=== PATIENT | male | born 1955 | race Caucasian/White ===

== ENCOUNTER 2017-06-25 15:56 | Emergency (ER) | payer MEDICAID ==
[~2017-06-25] VITALS: Ht 170.2 cm; Wt 74.8 kg
[2017-06-25 16:13] LABS: HEMOGLOBIN 13.6 g/dL (14.1-18.0); LYMPH % 30.6 % (10-50)
--- NOTE | 2017-06-25 16:34 | Emergency Room Report ---
History of Present Illness Time Seen by [id number] Presenting Problem in Triage Pt arrived:Ambulance Stretcher Presenting Problem:SEIZURE AT HOME. PT IS AWAKE UPON ARRIVAL TO ED WITHOUT INTERVENTION FSBS WNL PER EMS. NO SIGNS OF AMS. STATES HAS BEEN TAKING HIS MEDICINE ROUTINELY AND HASN'T ACTUALLY HAD A SEIZURE. Onset of symptoms date/time:/ or onset unknown for:MEDICAL HX UNKNOWN Treatment Prior to Arrival: [employer] Provided by: Sepsis Risk Assessment: Temp: 97.8 B/P: 123/72 MAP: 89 Pulse: 75 Resp: 18 Recent fever? N Clinical Suspician of Infection? N Mental Status: 1 - Regular (Normal Baseline) Sepsis Risk:Low Sepsis Risk Have you (or family members/close friends) recently traveled outside the [place]? N If Yes, where/when: Have you had exposure to infectious disease within the past month? TB? Other? Specify: Comment The patient is brought in by aunt once from [place]. He reportedly has a seizure. He denies having had a seizure and says he feels fine, his normal self. No recent illness. He has no pain. Denies hitting his head. No neck pain. He has a prior history of a seizure disorder. He denies tongue bites or incontinence. I have seen the patient twice previously in this emergency department under the same circumstances, he has a reported seizure but does not recall having had a seizure and denies having had a seizure. ALLERGIES Coded Allergies: No Known Allergies (06/25/17) Home Medications Reported Medications ASPIRIN (Aspirin) 81 MG PO DAILY Atorvastatin Calcium (Atorvastatin) 80 MG PO QHS CHOLECALCIFEROL (VITAMIN D3) (Vitamin D3) 800 IU PO DAILY FOLIC ACID (Folic Acid) 1 MG PO DAILY MAGNESIUM OXIDE (Magnesium Oxide) 400 MG PO BID Metoprolol Tartrate (Metoprolol) 25 MG PO BID Pantoprazole Sodium (Pantoprazole 40MG) 40 MG PO DAILY Levetiracetam (Keppra) 500 MG PO BID LISINOPRIL (Lisinopril) 5 MG PO DAILY Acetaminophen 650 MG PO Q4HP PRN PAIN History Medical History General CAD? No Angina: No NM: No Hypertension? Yes Hyperlipidemia? Yes CHF? No DVT? No PE? No COPD? No Asthma? No Anemia? Yes GERD? No Gastric ulcers? No GI Bleed? Yes Hernia? No Thyroid Problems? No Hypothyroidism? No CVA? No Seizures? Yes Diabetes? No Renal Insuffiency? No End Stage Renal Disease? No UTI? No Stones? No BPH? No GB Disease: No Nephritic Syndrome? No Asplenia? No Hepatitis? No Sickle Cell Disease? No Arthritis? No Migraines? No Cataracts? No Glaucoma? No MRSA? No HIV? No TB? Yes Anxiety? Yes Depression? Yes Cancer? Yes Site: UNKNOWN More? Yes Additional hx: ALCOHOL DEPENDENCY, UPPER GI HEMORRHAGE, TUBERCULOSIS, VRE, VITAMIN D DEFICIENCY Immunization Hx Ped.Immunizations UTD Yes DT/Tetanus Unknown Flu [id number] Pneumonia Refuses Surgical Hx Previous Surgery?N Family History Family Hx Diabetes No CAD No Hypertension Yes Hyperlipidemia Yes Cancer No TB Yes Social History Smoking Hx Smoker: Current Every Day Smoker Tobacco: Yes Type Cigarettes Packs/day 1 1/2 - 2 Packs Alcohol Alcohol: Yes Review of Systems All Other Systems Reviewed and Negative Constitutional denies fever Respiratory denies cough, denies shortness of breath Cardiovascular denies chest pain, denies palpitations Gastrointestinal denies abdominal pain, denies diarrhea, denies nausea, denies vomiting Musculoskeletal denies back pain, denies joint pain, denies neck pain Psychiatric/Neurological denies headache, denies numbness, denies weakness Physical Exam Vital Signs Vital Signs Date Time Temp Pulse Resp B/P Pulse O2 O2 Flow FiO2 Ox Delivery Rate 06/25 1558 97.8 75 18 123/72 98 General Appearance normal appearance, WD/WN Eye Exam - bilateral eye normal exam, bilateral eye PERRL, bilateral eye EOMI Ear, Nose, Throat hearing grossly normal, normal ENT inspection, no signs of cranial trauma Neck normal inspection, non-tender, supple, full range of motion Respiratory Status Yes: trachea midline, chest symmetrical, non tender chest. No: respiratory distress. Lung Sounds bilateral: normal breath sounds, lungs clear. Cardiovascular normal exam, regular rate/rhythm, no peripheral edema, no gallop, no JVD, no murmur, no rub, normal peripheral pulses Peripheral Pulses Pulses normal Yes Gastrointestinal normal bowel sounds, normal exam, non tender, soft, no organomegaly Back normal inspection, no CVA tenderness, no vertebral tenderness Extremities non-tender, normal range of motion, normal inspection Neurologic alert, social worker assistant II-XII nml as tested, no motor/sensory deficits Mental status normal mood/affect Skin intact, normal color, warm/dry Medical Decision Making LABS/Meds/Orders Pt receiving controlled substance in ED? No Results/Orders Laboratory Tests 06/25/17 1558: Sodium 133 L, Potassium 5.0, Chloride 97 L, Carbon Dioxide 29, BUN 14, Creatinine 1.1, Estimated Creat Clear 73, Estimated GFR (MDRD) 68, Glucose 103, Calcium 8.9, Total Bilirubin 0.5, AST 29, ALT 32, Alkaline Phosphatase 117 H, Total Protein 7.1, Albumin 3.6, Globulin 3.5 H, Albumin/Globulin Ratio 1.0 L, WBC 6.5, RBC 4.37 L, Hgb 13.6 L, Hct 41.5 L, MCV 95.0, RDW 13.5, Plt Count 227, MPV 8.2, Gran % 53.7, Gran # 3.5, Lymphocytes % 30.6, Monocytes % 8.0, Eosinophils % 7.0, Basophils % 0.6, Lymphocytes # 2.0, Monocytes # 0.5, Eosinophils # 0.5 H, Basophils # 0.0, PUBS MCHC 32.7, MCH 31.1 Current Medication Orders Sig/Valery Start time Last Medication Dose Route Stop Time Status Admin Sodium Chloride 10 ML PRN PRN 06/25 161 AC IV 06/26 1603 Orders Procedure Date/time Status DIET-NOTHING BY MOUTH 06/[address] HEAD W/O CONTRAST 06/[address] HEAD REQ 06/25 160 Complete CHEST(2 VIEWS-NOT PORTABLE) 06/25 160 Active IV SALINE LOCK 06/25 160 Active CBC WITH AUTO DIFF 06/25 160 Complete CHEM 12 PROFILE 06/25 160 Complete XRAY/CT/US XRAY/CT/US CT head Comment CT scan interpreted by [facility] radiologist. Faxed report received and reviewed: No definite acute intracranial disease. Departure Departure Disposition DC Home or Self Care(routine) Clinical Impression Primary Impression: Seizure Condition STABLE Referrals Malou FULLER,Gonzalo Maurice (Family) Patient Instructions DI for Seizure Disorder -- Adult Additional Instructions Additional instructions for SEIZURE OR LOSS OF CONSCIOUSNESS/POSSIBLE SEIZURE: NO DRIVING, BIKE RIDING, SWIMMING, TUB BATHING, LADDERS UNTIL CLEARED BY DOCTOR. RETURN IF SEIZURE RECURS. NO ALCOHOL OR STREET DRUGS. See your physician as soon as possible for follow-up. Return to the emergency department if seizure recurs. ED Critical Care Critical Care No
[2017-06-25 17:05] VITALS: BP 123/72
--- NOTE | 2017-06-26 09:34 | RADIOLOGY REPORT PS360 ---
CHEST(2 VIEWS-NOT PORTABLE) COMPARISON: PA and lateral chest 08/12/2016 HISTORY: Seizure activity TECHNIQUE: PA and lateral chest FINDINGS: The lung escobar are well expanded and appear clear of infiltrate. There are stable post inflammatory scarring left upper lobe. There is borderline cardio megaly without failure. The lateral view] fractures left side. There is deformity of the lateral right clavicle which was noted previously likely due to old unfused fracture. There are stable old compression fracture lower thoracic spine. IMPRESSION: Chronic changes, no acute pathology noted
--- NOTE | 2017-06-26 09:36 | RADIOLOGY REPORT PS360 ---
CT HEAD W/O CONTRAST COMPARISON: Noncontrast CT scan of brain 01/05/2016 HISTORY: Seizure activity TECHNIQUE: Multiaxial scans obtained from base skull to the vertex and were performed without contrast. FINDINGS: The base of skull appears normal, the mastoids are clear. The basilar cisterns are mildly prominent. The ventricular system is normal. There is no ischemic infarct or bleed and there are no extra-axial fluid collections. The sylvian fissures and cortical sulci are prominent. There are mild periventricular hypodensities consistent with chronic ischemic white matter changes. There is prominent arteriosclerotic calcification of the carotid siphons bilaterally. IMPRESSION: Findings of mild to moderate cortical atrophy and mild white matter changes, no acute intracranial pathology noted, agree the [facility] report
--- OUTSIDE RECORDS SUMMARY | 2017-07-02 07:54 | External Medical Summary Rpt | CCD ---
Author Author , BRIANNA Organization BRIANNA Address Unknown Phone [email or web address] Care Team Providers Care Sales Intern Name Role Phone JENNIE WYATT R, Unavailable Unavailable EDMUNDOJENNIE GARCIA R ABSNER KEENAN, ABSNER Unavailable Unavailable KEENAN ZENDEJAS ZANE, ZENDEJAS Unavailable Unavailable ZANE SILVIO GARCIA JEAN-PAUL, Unavailable Unavailable SILVIO GARCIA JEAN-PAUL [facility] [place], Unavailable Unavailable [facility] [place] [facility] [place], Unavailable Unavailable [facility] [place] ARNOLD, ARNOLD Unavailable Unavailable ARNOLD, ARNOLD Unavailable Unavailable ARNOLD SUSHILA, ARNOLD Unavailable Unavailable SUSHILA AYACH TOÑITO, AYACH TOÑITO Unavailable Unavailable AZIZ, AZIZ Unavailable Unavailable BEINEKE, BEINEKE Unavailable Unavailable BESSON, BESSON Unavailable Unavailable BESSON TING, BESSON Unavailable Unavailable TING PITTMAN, PITTMAN Unavailable Unavailable PITTMAN ALL, PITTMAN ALL Unavailable Unavailable BRAUDIS, BRAUDIS Unavailable Unavailable BRAUDIS, BRAUDIS Unavailable Unavailable [facility] Unavailable Unavailable SERVICE, [facility] Unavailable Unavailable SERVICE, [facility] CRISTIANO KET, CRISTIANO KET Unavailable Unavailable DIAZ JAM, DIAZ JAM Unavailable Unavailable AZRA CLEVE, AZRA Unavailable Unavailable CLEVE HARMONY ADRIANNA, HARMONY Unavailable Unavailable ADRIANNA BUCKY AUTO BODY REPAIRER, BUCKY Unavailable Unavailable AUTO BODY REPAIRER [facility], Unavailable Unavailable [facility] Unavailable Unavailable LA, [facility] Unavailable Unavailable [facility], [facility] SHANE BILL, Unavailable Unavailable SHANE BILL DISANTIS ZANE, Unavailable Unavailable DISANTIS ZANE DARION, DARION Unavailable Unavailable ESCOTT, ESCOTT Unavailable Unavailable [facility] Unavailable Unavailable [facility]ST[facility], [facility] Unavailable Unavailable DI[facility]NOST[facility], [facility] WILTON CHILO, Unavailable Unavailable WILTON CHILO [facility] Unavailable Unavailable TRANSPORTATION SER, [facility] HUDSON, HUDSON Unavailable Unavailable HUDSON NAN, HUDSON Unavailable Unavailable NAN ESTEVAN PAD, ESTEVAN Unavailable Unavailable PAD AUSTIN, AUSTIN Unavailable Unavailable AUSTIN AMOL, AUSTIN Unavailable Unavailable AMOL JIN SUSHILA, JIN SUSHILA Unavailable Unavailable VIRI, JR, VIRI, Unavailable Unavailable JR KELLY TING, Unavailable Unavailable KELLY TING CAIN, CAIN Unavailable Unavailable [facility], [facility] Unavailable Unavailable [facility] Unavailable Unavailable INC, [facility] Unavailable [facility]available HOSPITAL P, [facility] HOSPITAL P HASSOUN BHAVIK, HASSOUN Unavailable Unavailable BHAVIK PALOMARES MAR, PALOMARES Unavailable Unavailable MAR [facility], Unavailable Unavailable [facility] MIRZA TING, MIRZA TING Unavailable Unavailable BATOOL, BATOOL Unavailable Unavailable [facility] Unavailable Unavailable CENTER, [facility] ISTANBOLI MOH, Unavailable Unavailable ISTANBOLI MOH KAKAJI, KAKAJI Unavailable Unavailable KUMAR MAR, KUMAR Unavailable Unavailable MAR [facility] Unavailable Unavailable IMAGING ASS, [facility] CATHERINE BERTA, Unavailable Unavailable CATHERINE BERTA KEENAN BEBA, KEENAN BEBA Unavailable Unavailable [facility] Unavailable Unavailable PRACTITIONER GR, [facility] NURSE PRACTITIONER GR GÓMEZ SIMPSON, Unavailable Unavailable KOSTELIC CALVINDionicio VASQUEZS-ZENDEJAS, Unavailable Unavailable KUNS-ZENDEJAS MIKHAIL, MIKHAIL Unavailable Unavailable MIKHAIL CH[facility], MIHKAIL [facility] Unavailable [facility] Unavailable Unavailable [facility] Unavailable Unavailable [facility] Unavailable Unavailable [facility], [facility] ROLA NERIS, ROLA JAM Unavailable Unavailable ECHOLS, ECHOLS Unavailable Unavailable [facility] Unavailable Unavailable [facility], [facility] Unavailable Unavailable [facility], [facility] Unavailable Unavailable H D, [facility] Un[facility] PRATEEK, PRATEEK Unavailable Unavailable PR[facility] CON, PR[facility] CON Unavailable Unavailable MARCHINO TING, Unavailable Unavailable MARCHINO TING MASKEY JUDIE, MASKEY Unavailable Unavailable JUDIE NICKELS ZANE, NICKELS Unavailable Unavailable ZANE OSTERHAGE JADE, Unavailable Unavailable OSTERHAGE JADE BLANCA BHAVIK, BLANCA BHAVIK Unavailable Unavailable [facility], Un[facility]available [facility], [facility] KIRBY RIGGS, Unavailable Unavailable [facility] Unavailable Unavailable LALO, KIRBY RIGGS LALO PETTEY JAM, PETTEY Unavailable Unavailable JAM RASLAU FLA, RASLAU Unavailable Unavailable FLA RENUSCH, RENUSCH Unavailable Unavailable RENUSCH BHAVIK, RENUSCH Unavailable Unavailable BHAVIK RICE JAM, RICE JAM Unavailable Unavailable MARTINEZ JEREMY, Unavailable Unavailable MARTINEZ JEREMY PORTER, PORTER Unavailable Unavailable PORTER MANJU, PORTER MANJU Unavailable Unavailable SCALF, PRAVIN E, Unavailable Unavailable SCALF, PRAVIN E SHASHY PEDRO, SHASHY Unavailable Unavailable PEDRO FERNANDEZ MARGARITA, FERNANDEZ MARGARITA Unavailable Unavailable FERNANDEZ ELISA, FERNANDEZ ELISA Unavailable Unavailable FERNANDEZ MAGGI, FERNANDEZ MAGGI Unavailable Unavailable SOTINGEANU JEREMY, Unavailable Unavailable SOTINGEANU JEREMY [facility], [facility] Unavailable Unavailable [facility]GENCY PHYSI, [facility] Unavailable Unavailable PHYSICIAN SERVI, [facility] PHYSICIAN SERVI [facility], [facility]available Unavailable [facility], Unavailable Unavailable [facility] BREWER CHR, BREWER CHR Unavailable Unavailable STEARLEY SET, Unavailable Unavailable STEARLEY SET JUAN JOSE ANNEL, JUAN JOSE Unavailable Unavailable ANNEL BONNER SCO, BONNER Unavailable Unavailable SCO STRUP TING, STRUP TING Unavailable Unavailable TALARI PRE, TALARI Unavailable Unavailable PRE PEG COLIN, PEG Unavailable Unavailable COLIN RIZO DONALD, RIZO DONALD Unavailable Unavailable [facility] Unavailable Unavailable [facility], [facility] Unavailable [facility]available ASSIST, [facility], [facility]available Unavailable [facility] Unavailable [facility]available [facility] KASEY GENO, KSAEY Unavailable Unavailable GENO [id number] # Unavailable Unavailable [id number], [id number] # [id number] [facility] ([id number]), Unavailable Unavailable [facility] ([id number]) WALKER FOR, WALKER Unavailable Unavailable [facility] Unavailable Unavailable DEPT [facility], [facility] Unavailable Unavailable DEPT [facility] EDYTA IV A, Unavailable Unavailable EDYTA IV A DANIA AMOL, DANIA Unavailable Unavailable AMOL WILLEM JOVAN, WILLEM Unavailable Unavailable JOVAN WYCOFF RENE, WYCOFF Unavailable Unavailable RENE CLIFF MAR, Unavailable Unavailable ALVIN BLANTON, Unavailable Unavailable ALVIN HOLT Purpose Continuity of Care Document - 05-17-2008 through 2016 Problems Code Diagnosis DOS Provider Status [id number] ENCOUNTER 04-22-2017 [facility] DRUG LEVEL MONITORING [id number] EPILEPSY 02-16-2017 [facility] UNS NOT PHYSICIANS, INTRACT W/O PLLC STATUS EPILEPTICUS I10 ESSENTIAL 02-16-2017 [facility] HYPERTENSIO INC N R569 UNSPECIFIED 02-16-2017 [facility] Z720 TOBACCO USE 02-16-2017 [facility] R69 ILLNESS 01-29-2017 [facility] UNSPECIFIED TRANSPORTAT ION SER 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 UNSPECIFIED M150 PRIMARY 01-08-2017 A[facility]WA[facility] GENERALIZED OSTEOARTHRI TIS R5381 OTHER 01-08-2017 KOURTNEY MALAISE R748 ABNORMAL 01-01-2017 [facility] NURSE LEVELS OF PRACTITIONE OTHER SERUM R GR ENZYMES G68664 PERSONAL 01-01-2017 [facility] NURSE HISTORY OF PRACTITIONE OTHER R GR SPECIFIED CONDITIONS D649 ANEMIA 12-24-2016 [facility] UNSPECIFIED PHYSICIANS [place] E559 VITAMIN D 12-24-2016 [facility] DEFICIENCY [place] UNSPECIFIED HOLDINGS E785 HYPERLIPIDE 12-24-2016 [facility]ER PHYS[facility]IANS UNSPECIFIED LA R410 DISORIENTAT 12-11-2016 [facility] UNSPECIFIED SERVICE I2510 [facility] [place] 10-21-2016 [facility] CORONARY SERV ARTERY W/O FOUNDATION ANGINA PECTORIS I255 ISCHEMIC 10-21-2016 [facility] CARDIOMYOPA SERV THY FOUNDATION I4581 LONG QT 10-21-2016 [facility] SYNDROME SERV [facility] R9431 ABNORMAL 10-21-2016 [facility] ELECTROCARD SERV IOGRAM FOUNDATION R079 CHEST PAIN 10-07-2016 [facility] UNSPECIFIED MOBILE DIAGNOSTIC SE R7611 NONSPECIFIC 10-07-2016 EXPRESS RXN MOBILE TUBERCULIN DIAGNOSTIC SKIN TEST SE W/O ACT TB O64731 OTHER LONG 10-01-2016 [facility] TERM PHYSICIANS CURRENT [place] DRUG THERAPY G9340 ENCEPHALOPA 09-27-2016 [facility] THY SERV UNSPECIFIED FOUNDATION I5020 UNSPECIFIED 09-27-2016 [facility] SYSTOLIC SERV CONGESTIVE FOUNDATION HEART FAILURE Z8719 PERSONAL 09-27-2016 [facility] HIST[facility] OTHER [facility]ATION DISEASES DIGESTIVE SYSTEM R9082 WHITE 09-25-2016 [facility] MATTER SERV DISEASE FOUNDATION UNSPECIFIED [id number] LAC W/O FB 09-25-2016 [facility] LT EYELID & SERV PERIOCULAR FOUNDATION AREA INIT ENC Z8673 PERSONAL HX 09-25-2016 [facility] TIA & SERV CEREB FOUNDATION INFARCT NO RESID DEFICIT I5022 CHRONIC 09-24-2016 [facility] CON[facility]IVE HOSPITALS HEART FAILURE I510 CARDIAC 09-24-2016 [facility] SEPTAL SERV DEFECT FOUNDATION ACQUIRED F84678 PAIN IN 09-24-2016 [place] U[facility]PECIFIED MEDICAL HIP IMAGING ASS R4020 UNSPECIFIED 09-24-2016 [facility] COMA AMBULANCE SERVICE [id number] COMA SCALE 09-24-2016 [facility] TO SOUND AT HOSPITALS HOSPITAL ADMIS [id number] COMA SCALE 09-24-2016 [facility] CONFUSED HOSPITALS CONVERS AT ADM [id number] COMA SCALE 09-24-2016 [facility] RSPN LOCAL HOSPITALS PAIN AT HOSP ADM R4182 ALTERED 09-24-2016 [facility] MENTAL SERV STATUS [facility] UNSPECIFIED R55 SYNCOPE AND 09-24-2016 [facility] COLLAPSE SERV [facility] [id number] LACERATION 09-24-2016 [facility] W/O FB PHYSICIANS, OTHER PART PLLC HEAD INITIAL ENC S140B4V CONCUSSION 09-24-2016 W/LOC UNS HEALTHCARE DURATION HOSPITALS INITIAL ENCOUNTER L774LRL OTHER 09-24-2016 [facility] SPECIFIED AMBULANCE INJURIES SERVICE HEAD INITIAL ENCOUNTER D7699ZP UNSPECIFIED 09-24-2016 [facility] INJURY OF PHYSICIANS, HEAD PLLC INITIAL ENCOUNTER Q3876US UNSPECIFIED 09-24-2016 [facility] INJURY OF SERV FACE [facility] INITIAL ENCOUNTER Q1739NP MX FX RIBS 09-24-2016 [facility] INIT ENC HOSPITALS CLOS FRACTURE Z1315MS UNSPECIFIED 09-24-2016 [facility] INJURY OF MEDICAL PELVIS IMAGING ASS INITIAL ENCOUNTER T70LMIL UNSPECIFIED 09-24-2016 [facility] FALL SERV INITIAL FOUNDATION ENCOUNTER Z42OPNL OTHER SPEC 09-24-2016 [facility] EVENTS SERV UNDETERMINE [facility] D INTENT INIT ENC Z043 ENCOUNTER 09-24-2016 [facility] EXAM & SERV OBSERVATION FOUNDATION FOLLOW OTH ACCIDENT Z743 NEED FOR 09-24-2016 [facility] CONTINUOUS [place] SUPERVISION E871 HYPO-OSMOLA 08-12-2016 [facility] HYPONATREMI INTERNAL A MED R05 COUGH 08-12-2016 [facility] R260 ATAXIC GAIT 08-12-2016 [facility] INTER[facility] MED [id number] ADVERSE 08-12-2016 [facility] [facility] HYDANTOIN INTERNAL DERIVATIVES MED INITIAL ENC Z9181 HISTORY OF 08-12-2016 [facility] [place] [facility] INTER[facility] MED U184D7D POISON 08-11-2016 [facility] HYDANTOIN PHYSICIANS, DERIVATIVES PLLC UNDETERM INIT ENC B351 TINEA 07-31-2016 [facility] UNGUIUM C14830 UNS 07-31-2016 [facility] ATHEROSCLER [place] ART EXTREM BILATERAL LEGS L851 ACQ 07-31-2016 [facility] KERATOSIS KERATODERMA PALMARIS ET PLANTARIS N25806 PAIN IN 07-31-2016 [facility] RIGHT TOES D86110 PAIN IN 07-31-2016 [facility] LEFT TOES Z23 ENCOUNTER 07-29-2016 [facility] IMMUNIZATIO [facility] DEPT N ADRIANNA M14319 PAIN IN 06-30-2016 [facility] RIGHT ARM AMBULANCE SERVICE R0789 OTHER CHEST 06-30-2016 [facility] PAIN AMBULANCE SERVICE T65239S ABRASION 06-30-2016 [facility] RIGHT KNEE PHYSICIANS, INITIAL PLLC ENCOUNTER R42 DIZZINESS 06-20-2016 [place] AND MEDICAL GIDDINESS IMAGING ASS T0530WS CONTUSION 06-20-2016 [facility] RT EYELID & PHYSICIANS, PERIOCULAR PLLC AREA INIT ENC T63100J LAC W/O FB 06-20-2016 [facility] EYELID & MEDICAL PERIOCULAR IMAGING ASS AREA INIT ENC R401 STUPOR 05-28-2016 [facility] AMBULANCE SERVICE R531 WEAKNESS 05-28-2016 [facility] AMBULANCE SERVICE A159 RESPIRATORY 04-08-2016 [facility] S UNSPECIFIED K029 DENTAL 04-08-2016 ST [facility] UNSPECIFIED MED CTR K133 HAIRY 04-08-2016 [facility] MED CTR Z7982 SKILLED NURSING 04-08-2016 ST CURRENT USE [facility] Z7901 FLASK CLEANER 04-02-2016 [facility] CURRENT USE PHYSICIANS OF [place] ANTICOAGULA NTS Y58118 GANGLION 02-12-2016 [facility] RIGHT WRIST PHYSICIANS GROUP U14198 PAIN IN 01-28-2016 [place] RIGHT WRIST MEDICAL IMAGING ASS A47503 PAIN IN 01-28-2016 [place] LEFT WRIST MEDICAL IMAGING ASS L7204DX UNSPECIFIED 01-28-2016 [place] INJURY RT MEDICAL WRIST HAND IMAGING ASS FINGERS INITIAL R5841HH UNSPECIFIED 01-28-2016 [place] INJURY LT MEDICAL WRIST HAND IMAGING ASS FINGERS INITIAL R400 SOMNOLENCE 01-05-2016 [facility], PLLC R509 FEVER 01-05-2016 [facility] UNSPECIFIED AMBULANCE SERVICE R918 OTHER 01-05-2016 [place] NONSPECIFIC MEDICAL ABNORMAL IMAGING ASS FINDING OF LUNG FIELD M542 CERVICALGIA 07-31-2015 [place] [facility] R0902 HYPOXEMIA 07-31-2015 [facility] SERVICE R600 LOCALIZED 07-31-2015 [facility] MEDICAL IMAGING ASS R1121RR CONTUSION 07-31-2015 [facility] OF SCALP PHYSICIANS, INITIAL PLLC ENCOUNTER U969BAK UNSPECIFIED 07-31-2015 [facility] INJURY OF MEDICAL NECK IMAGING ASS INITIAL ENCOUNTER D3866XA FALL ON 07-31-2015 [place] SAME LEVEL [facility] UNSPECIFIED HOSPITAL P INITIAL ENCOUNTER J19802 BATHROOM 07-31-2015 [place] [facility] P OCCUR EXT CAUSE A157 PRIMARY 07-18-2015 [facility] RESPIRATORY PHYSICIANS ASSIST TUBERCULOSI S K0501 ACUTE 07-18-2015 [facility] GINGIVITIS PHYSICIANS NON-PLAQUE ASSIST INDUCED K054 PERIODONTOS 07-18-2015 [facility] IS PHYSICIANS ASSIST M6281 MUSCLE 07-18-2015 [facility] WEAKNESS PHYSICIANS GENERALIZED ASSIST N179 ACUTE 07-18-2015 [facility] KIDNEY PHYSICIANS FAILURE ASSIST UNSPECIFIED A150 TUBERCULOSI 07-11-2015 [facility] S OF LUNG SERV FOUNDATION R930 ABNORMAL 07-11-2015 [facility] FINDINGS ON SERV DX IMAGING FOUNDATION SKULL & HEAD NEC V5882 ENCOUNTER 06-02-2015 [facility] FITTING&ADJ SERV FOUNDATION NON-VASCULA R CATHETER NEC 09515 OTHER 06-01-2015 [facility] SPECIFIED SERV DISORDER OF FOUNDATION INTESTINES 04127 OTHER 06-01-2015 [facility] NONSPECIFIC SERV ABNORMAL FOUNDATION FINDING OF LUNG FIELD 5119 UNSPECIFIED 05-30-2015 [facility] PLEURAL SERV EFFUSION FOUNDATION 5180 PULMONARY 05-30-2015 [facility] COLLAPSE SERV FOUNDATION 49857 LONG QT 05-25-2015 [facility] SYNDROME SERV FOUNDATION 08623 OTHER 05-25-2015 [facility] SPECIFIED SERV CARDIAC FOUNDATION DYSRHYTHMIA S 514 PULMONARY 05-25-2015 [facility] CONGESTION SERV AND FOUNDATION HYPOSTASIS 67216 NONSPECIFIC 05-25-2015 [facility] ABNORMAL SERV ELECTROCARD FOUNDATION IOGRAM 0310 PULMONARY 05-23-2015 [facility] DISEASES SERV DUE TO FOUNDATION OTHER MYCOBACTERI A 57187 ENCEPHALOPA 05-23-2015 [facility] THY, SERV UNSPECIFIED FOUNDATION 49206 UNSPECIFIED 05-23-2015 [facility] SYSTOLIC SERV HEART FOUNDATION FAILURE 75439 ACUTE 05-23-2015 [facility] RESPIRATORY SERV FAILURE FOUNDATION 7869 OTH 05-23-2015 [place] [facility] SYMPTOMS SERV INVOLVING FOUNDATION RESPIRATORY SYSTEM&CHES T 4928 OTHER 05-22-2015 [facility] EMPHYSEMA SERV [facility]ATION 486 PNEUMONIA, 05-21-2015 [facility] ORGANISM SERV UNSPECIFIED FOUNDATION 4289 UNSPECIFIED 05-20-2015 [facility] HE[facility] FAILURE FOUNDATION 496 CHRONIC 05-20-2015 [facility] AIRWAY SERV OBSTRUCTION FOUNDATION NEC 5715 CIRRHOSIS 05-19-2015 [place] [facility] OF LIVER SERV WITHOUT FOUNDATION MENTION OF ALCOHOL 7969 OTHER 05-17-2015 [facility] ABNORMAL HOSPI FINDING V4589 OTHER 05-17-2015 [facility] POSTSURGICA SERV L STATUS FOUNDATION OTHER 4269 UNSPECIFIED 05-16-2015 [facility] CONDUCTION [facility] DISORDER F[facility]ATION 84358 SUPRAVENTRI 05-16-2015 [facility] CULAR SERV PREMATURE FOUNDATION BEATS 2851 ACUTE 05-15-2015 [facility] PHYSICIAN AGIC ANEMIA SERVI 5789 UNSPECIFIED 05-15-2015 [facility] HEMORRHAGE N PHYSICIAN OF SERVI GASTROINTES TINAL TRACT 5849 ACUTE 05-15-2015 [facility] K[facility] N PHYSICIAN FAILURE SERVI UNSPECIFIED V5881 FITTING AND 05-14-2015 [facility] ADJUSTMENT SERV OF FOUNDATION VASCULAR CATHETER 2763 ALKALOSIS 05-10-2015 [facility] 62999 OTHER 05-10-2015 [facility] DISEASES OF SERV LUNG NOT FOUNDATION ELSEWHERE CLASSIFIED 5739 UNSPECIFIED 05-10-2015 [facility] DISORDER [facility] OF LIVER FOUNDATION 33007 OTHER 05-10-2015 [facility] ASCITES SERV [facility] 3970 DISEASES OF 05-06-2015 [facility] TRICUSPID SERV VALVE FOUNDATION 83175 COR 05-06-2015 [facility] ATHEROSLERO SERV UNSPEC FOUNDATION TYPE VESSEL [place]/RAMY T 4149 UNSPECIFIED 05-06-2015 [facility] CHRONIC [facility] ISCHEMIC FOUNDATION HEART DISEASE 4243 PULMONARY 05-06-2015 [facility] VALVE [facility] DISORDERS FOUNDATION 89309 ACUTE ON 05-06-2015 [facility] CHRONIC SERV SYSTOLIC FOUNDATION HEART FAILURE 4293 CARDIOMEGAL 05-06-2015 [facility] Y SERV [facility] 5070 PNEUMONITIS 05-06-2015 [facility] DUE TO SERV INHALATION FOUNDATION OF FOOD OR VOMITUS 42857 CORONARY 05-05-2015 [facility] ATHEROSCLER SERV OSIS [place] FOUNDATION CORONARY ARTERY 95560 OTHER 05-03-2015 [facility] PREMATURE SERV BEATS FOUNDATION 4279 UNSPECIFIED 05-03-2015 [facility] CARDIAC SERV DYSRHYTHMIA FOUNDATION 33640 DYSPHAGIA 04-29-2015 [facility] UNSPECIFIED SERV FOUNDATION 9331 FOREIGN 04-23-2015 [facility] BODY IN SERV LARYNX FOUNDATION 1103 DERMATOPHYT 04-12-2015 [facility] OSIS OF SERV GROIN AND FOUNDATION PERIANAL AREA 34119 ALTERED 04-12-2015 [facility] M[facility] STATUS FOUNDATION D696 THROMBOCYTO 04-10-2015 [facility] UNSPECIFIED E46 UNSPECIFIED 04-10-2015 [facility] PROTEIN-YOHAN ORIE MALNUTRITIO N I214 NON-ST 04-10-2015 [facility] MYOCARDIAL INFARCTION I5023 ACUTE CHRON 04-10-2015 [facility] HEART FAILURE J189 PNEUMONIA 04-10-2015 [facility] UNSPECIFIED HOSPITAL ORGANISM J690 PNEUMONITIS 04-10-2015 [facility] INHALATION OF FOOD AND VOMIT J9601 ACUTE 04-10-2015 [facility] FAILURE WITH HYPOXIA K920 HEMATEMESIS 04-10-2015 [facility] 31047 OTHER 04-07-2015 [facility] INJURY OF SERV CHEST WALL FOUNDATION 9593 INJURY 04-07-2015 [facility] OTHER&UNSPE SERV CIFIED FOUNDATION [employer]OW FOREARM&WRI ST E8889 UNSPECIFIED 04-07-2015 [facility] FALL SERV FOUNDATION 74077 UNSPEC 12-03-2013 [facility] WITHOUT MENTION INTRACT EPILEPSY 3319 UNSPECIFIED 06-26-2013 [place] [facility] CEREBRAL SERV DEGENERATIO FOUNDATIO N 48808 TRANSIENT 06-26-2013 [facility] ALTERATION [place] OF [place] AWARENESS 19245 OTHER 06-26-2013 [facility] CONVULSIONS [place]AN [place] 9953 ALLERGY 05-12-2013 [facility] UNSPECIFIED [facility]ARE NOT CENTER ELSEWHERE CLASSIFIED 4019 UNSPECIFIED 05-01-2013 [facility] HYPERTENSIO N 4371 OTH 05-01-2013 [facility] GENERALIZED SERV ISCHEMIC FOUNDATIO CEREBROVASC ULAR DISEASE 12848 OTHER 05-01-2013 [place] [facility] DISEASES OF SERV NASAL FOUNDATIO CAVITY AND SINUSES 7224 DEGENERATIO 05-01-2013 [facility] N OF SERV CERVICAL FOUNDATION INTERVERTEB RAL DISC 7231 CERVICALGIA 05-01-2013 [facility] 7383 ACQUIRED 05-01-2013 [facility] DEFORMITY [facility] OF CHEST FOUNDATION AND RIB V1254 PERSONAL HX 05-01-2013 [facility] W/O RESIDUAL DEFICITS 05352 SHORTNESS 12-15-2012 [facility] OF BREATH [place] 64750 CHEST PAIN 12-15-2012 [place] [facility] UNSPECIFIED SERV FOUNDATIO 7999 OTHER 12-13-2012 [facility] UNKNOWN&UNS URBAN PEC CAUSE [place] MORBIDITY/M ORTALITY 03485 HEAD 04-17-2012 [facility] IN[facility]URY, SERV UNSPECIFIED FOUNDATION 73890 INJURY OF 04-17-2012 [facility] FACE AND SERV NECK OTHER FOUNDATIO AND UNSPECIFIED 6959 UNSPECIFIED 01-09-2012 [facility] ERYTHEMATOU S CONDITION 05255 SWELLING OF 01-09-2012 [facility] LIMB [facility] 7823 EDEMA 01-09-2012 [facility] 9164 HIP THI 01-09-2012 [facility] LEG&ANK [facility] INSECT BITE NONVENOMOUS W/O INF 9194 OTH MX&UNS 01-09-2012 [facility] INSECT N EMERGENCY BITE PHYS NONVENOMOUS W/O INF E9064 BITE OF 01-09-2012 [facility] NONVENOMOUS N EMERGENCY ARTHROPOD PHYS 72093 OTHER 12-13-2011 [facility] [place] ALTERATION RADIOLOGY OF CONSCIOUSNE SS 7850 UNSPECIFIED 12-13-2011 [facility] N EMERGENCY TACHYCARDIA PHYSI V741 SCREENING 03-13-2009 [facility] EXAMINATION HE[facility] FOR CENTRAL PULMONARY BANK ACCT TUBERCULOSI S V068 NEED PROPH 12-07-2008 [facility] VACC&INOCUL HEALTH AT AGAINST CENTRAL OTH COMB DZ BANK ACCT Medications Na ND Rx Da Fi Fi Am Da Di Ph RX Ph St me C No te ll ll ou ys ag ar # ys at rm s nt no ma ic us Or Da si cy ia de te s n re d LE 31 09 10 60 30 00 ME Ac VE 72 -0 -0 .0 00 D ti TI 20 1 14 CA ve RA 53 20 20 86 RE CE 71 17 17 69 TA 2 13 PH M AR 50 MA 0 CY MG TA BL ET TA 00 09 10 30 30 00 ME Ac B- 90 -0 -0 .0 00 D ti A- 40 4 6 00 14 CA ve 53 20 20 88 RE TE 08 17 17 16 0 04 PH TA AR BL MA ET CY PA 00 08 09 30 30 00 ME Ac NT 09 -2 -2 .0 00 D ti OP 30 14 CA ve RA 01 20 20 82 RE ZO 29 17 17 69 LE 8 05 PH AR SO MA D CY DR 40 MG TA B AT 59 08 09 30 30 00 ME Ac OR 76 -2 -2 .0 00 D ti VA 20 8 9 [address] 15 20 20 83 RE AT 80 17 17 72 IN 2 40 PH AR 80 MA CY MG TA BL ET FL 50 08 09 30 30 00 ME Ac UO 11 -1 -2 .0 00 D ti XE 10 8- 2- 00 14 CA ve TI 64 20 20 78 RE NE 70 17 17 64 1 59 PH HC AR L MA 10 CY MG CA PS UL E MA 00 08 09 60 30 00 ME Ac GN 60 -2 -2 .0 00 D ti ES 30 2- 2- 00 14 CA ve IU 20 20 20 80 RE M 92 17 17 32 OX 2 19 PH ID AR E MA 40 CY 0 MG TA BL ET LI 43 08 09 30 30 00 ME Ac SI 54 -2 -2 .0 00 D ti NO 70 2- 2- 00 14 CA ve MO 35 20 20 80 RE IL 21 17 17 32 5 1 20 PH AR MG MA CY TA BL ET ME 00 08 09 60 30 00 ME Ac TO 37 -1 -1 .0 00 D ti MO 80 1- 5- 00 14 CA ve OL 01 20 20 75 RE OL 80 17 17 23 1 51 PH TA AR RT MA RA CY TE 25 MG TA B FO 65 08 09 30 30 00 ME Ac LI 16 -1 -1 .0 00 D ti C 20 1- 5- 00 14 CA ve AC 36 20 20 75 RE ID 11 17 17 23 1 1 50 PH AR MG MA CY TA BL ET 00 08 09 30 30 00 ME Ac PI 90 -1 -1 .0 00 D ti RI 46 5- 5- 00 14 CA ve N 28 20 20 76 RE 81 88 17 17 33 9 87 PH MG AR MA CH CY EW AB LE TA BL ET TA 00 08 09 30 30 00 ME Ac B- 90 -0 -0 .0 00 D ti A- 40 5- 8- 00 14 CA ve 53 20 20 71 RE TE 08 17 17 21 0 55 PH TA AR BL MA ET CY LE 31 07 09 60 30 00 ME Ac VE 72 -2 -0 .0 00 D ti TI 20 9- 1- 00 14 CA ve RA 53 20 20 67 RE CE 71 17 17 22 TA 2 75 PH M AR 50 MA 0 CY MG TA BL ET AT 59 07 09 30 30 00 ME Ac OR 76 -3 -0 .0 00 D ti VA 20 1- 1- [address] 15 20 20 67 RE AT 80 17 17 77 IN 2 03 PH AR 80 MA CY MG TA BL ET MA 00 07 08 60 30 00 ME Ac GN 60 -2 -2 .0 00 D ti ES 30 5- 5- 00 14 CA ve IU 20 20 20 65 RE M 92 17 17 88 OX 2 93 PH ID AR E MA 40 CY 0 MG TA BL ET LI 43 07 08 30 30 00 ME Ac SI 54 -2 -2 .0 00 D ti NO 70 5- 5- 00 14 CA ve MO 35 20 20 65 RE IL 21 17 17 88 5 1 94 PH AR MG MA CY TA BL ET PA 00 07 08 30 30 00 ME Ac NT 09 -2 -2 .0 00 D ti OP 30 7- 5- 00 14 CA ve RA 01 20 20 66 RE ZO 29 17 17 04 LE 8 88 PH AR SO MA D CY DR 40 MG TA B ME 00 07 08 60 30 00 ME Ac TO 37 -1 -1 .0 00 D ti MO 80 4- 8- 00 14 CA ve OL 01 20 20 59 RE OL 80 17 17 05 1 90 PH TA AR RT MA RA CY TE 25 MG TA B FO 65 07 08 30 30 00 ME Ac LI 16 -1 -1 .0 00 D ti C 20 4- 8- 00 14 CA ve AC 36 20 20 59 RE ID 11 17 17 05 1 1 89 PH AR MG MA CY TA BL ET FL 50 07 08 30 30 00 ME Ac UO 11 -2 -1 .0 00 D ti XE 10 0- 8- 00 14 CA ve TI 64 20 20 61 RE NE 70 17 17 54 1 70 PH HC AR L MA 10 CY MG CA PS UL E 00 07 08 60 30 00 ME Ac TA 90 -0 -1 .0 00 D ti IN 45 7- 1- 00 14 CA ve N 82 20 20 53 RE D3 36 17 17 76 0 75 PH 40 AR 0 MA UN CY IT TA BL ET TA 00 07 08 30 30 00 ME Ac B- 90 -0 -1 .0 00 D ti A- 40 7- 1- 00 14 CA ve 53 20 20 53 RE TE 08 17 17 76 0 80 PH TA AR BL MA ET CY 00 06 08 30 30 00 ME Ac PI 90 -2 -0 .0 00 D ti RI 46 9- 4- 00 14 CA ve N 28 20 20 47 RE 81 88 17 17 01 9 24 PH MG AR MA CH CY EW AB LE TA BL ET LE 31 06 08 60 30 00 ME Ac VE 72 -3 -0 .0 00 D ti TI 20 0- 4- 00 14 CA ve RA 53 20 20 49 RE CE 71 17 17 19 TA 2 60 PH M AR 50 MA 0 CY MG TA BL ET AT 59 07 08 30 30 00 ME Ac OR 76 -0 -0 .0 00 D ti VA 20 4- 4- [address] 15 20 20 51 RE AT 80 17 17 30 IN 2 19 PH AR 80 MA CY MG TA BL ET PA 00 06 07 30 30 00 ME Ac NT 09 -2 -2 .0 00 D ti OP 30 7- 8- 00 14 CA ve RA 01 20 20 46 RE ZO 29 17 17 84 LE 8 05 PH AR SO MA D CY DR 40 MG TA B MA 00 06 07 60 30 00 ME Ac GN 60 -2 -2 .0 00 D ti ES 30 7- 8- 14 CA ve IU 20 20 20 46 RE M 92 17 17 84 OX 2 04 PH ID AR E MA 40 CY 0 MG TA BL ET LI 43 06 07 30 30 00 ME Ac SI 54 -2 -2 .0 00 D ti NO 70 7- 8 14 CA ve MO 35 20 20 46 RE IL 21 17 17 84 5 1 06 PH AR MG MA CY TA BL ET FO 65 06 07 30 30 00 ME Ac LI 16 -1 -2 .0 00 D ti C 20 6- 1- 00 14 CA ve AC 36 20 20 40 RE ID 11 17 17 39 1 1 39 PH AR MG MA CY TA BL ET ME 00 06 07 60 30 00 ME Ac TO 37 -1 -2 .0 00 D ti MO 80 6- 1- 00 14 CA ve OL 01 20 20 40 RE OL 80 17 17 39 1 40 PH TA AR RT MA RA CY TE 25 MG TA B FL 50 06 07 30 30 00 ME Ac UO 11 -2 -2 .0 00 D ti XE 10 0- 1- 00 14 CA ve TI 64 20 20 42 RE NE 70 17 17 28 1 35 PH HC AR L MA 10 CY MG CA PS UL E 00 06 07 60 30 00 ME Ac TA 90 -0 -1 .0 00 D ti IN 45 9- 4- 00 14 CA ve N 82 20 20 36 RE D3 36 17 17 59 0 34 PH 40 AR 0 MA UN CY IT TA BL ET LE 31 06 07 60 30 00 ME Ac VE 72 -0 -0 .0 00 D ti TI 20 2- 7- 00 14 CA ve RA 53 20 20 30 RE CE 70 17 17 75 TA 5 37 PH M AR 50 MA 0 CY MG TA BL ET 00 06 07 30 30 00 ME Ac PI 90 -0 -0 .0 00 D ti RI 46 2- 7- 00 14 CA ve N 28 20 20 30 RE 81 88 17 17 75 9 36 PH MG AR MA CH CY EW AB LE TA BL ET AT 59 06 07 30 30 00 ME Ac OR 76 -0 -0 .0 00 D ti VA 20 5- 7- [address] 15 20 20 31 RE AT 80 17 17 81 IN 2 96 PH AR 80 MA CY MG TA BL ET TA 00 06 07 30 30 00 ME Ac B- 90 -0 -0 .0 00 D ti A- 40 8- 7- 00 14 CA ve 53 20 20 35 RE TE 08 17 17 89 0 70 PH TA AR BL MA ET CY MA 00 05 06 60 30 00 ME Ac GN 60 -2 -3 .0 00 D ti ES 30 9- 0- 00 14 CA ve IU 20 20 20 26 RE M 92 17 17 07 OX 2 52 PH ID AR E MA 40 CY 0 MG TA BL ET LI 43 05 06 30 30 00 ME Ac SI 54 -2 -3 .0 00 D ti NO 70 9- 0- 00 14 CA ve MO 35 20 20 26 RE IL 21 17 17 07 5 1 54 PH AR MG MA CY TA BL ET PA 00 05 06 30 30 00 ME Ac NT 09 -2 -3 .0 00 D ti OP 30 9- 0- 00 14 CA ve RA 01 20 20 26 RE ZO 29 17 17 07 LE 8 53 PH AR SO MA D CY DR 40 MG TA B ME 00 05 06 60 30 00 ME Ac TO 37 -1 -2 .0 00 D ti MO 80 9- 3- 00 14 CA ve OL 01 20 20 21 RE OL 80 17 17 75 1 22 PH TA AR RT MA RA CY TE 25 MG TA B FO 65 05 06 30 30 00 ME Ac LI 16 -1 -2 .0 00 D ti C 20 9- 3- 00 14 CA ve AC 36 20 20 21 RE ID 11 17 17 75 1 1 21 PH AR MG MA CY TA BL ET TA 00 05 06 30 30 00 ME Ac B- 90 -1 -1 .0 00 D ti A- 40 2- 6- 00 14 CA ve 53 20 20 18 RE TE 08 17 17 36 0 02 PH TA AR BL MA ET CY 00 05 06 60 30 00 ME Ac TA 90 -1 -1 .0 00 D ti IN 45 3- 6- 00 14 CA ve N 82 20 20 15 RE D3 36 17 17 43 0 66 PH 40 AR 0 MA UN CY IT TA BL ET AT 60 05 06 30 30 00 ME Ac OR 50 -0 -0 .0 00 D ti VA 52 9- 9- [address] 67 20 20 12 RE AT 10 17 17 67 IN 9 55 PH AR 80 MA CY MG TA BL ET PA 00 05 06 30 30 00 ME Ac NT 09 -0 -0 .0 00 D ti OP 30 2- 2- 00 14 CA ve RA 01 20 20 13 RE ZO 29 17 17 47 LE 8 68 PH AR SO MA D CY DR 40 MG TA B MA 00 05 06 60 30 00 ME Ac GN 60 -0 -0 .0 00 D ti ES 30 2- 2- 00 14 CA ve IU 20 20 20 13 RE M 92 17 17 47 OX 2 63 PH ID AR E MA 40 CY 0 MG TA BL ET LI 43 05 06 30 30 00 ME Ac SI 54 -0 -0 .0 00 D ti NO 70 2- 2- 00 14 CA ve MO 35 20 20 13 RE IL 21 17 17 47 5 1 72 PH AR MG MA CY TA BL ET 00 05 06 30 30 00 ME Ac PI 90 -0 -0 .0 00 D ti RI 46 4- 2- 00 14 CA ve N 28 20 20 13 RE 81 88 17 17 95 9 11 PH MG AR MA CH CY EW AB LE TA BL ET LE 31 05 06 60 30 00 ME Ac VE 72 -0 -0 .0 00 D ti TI 20 4- 2- 00 14 CA ve RA 53 20 20 13 RE CE 70 17 17 95 TA 5 12 PH M AR 50 MA 0 CY MG TA BL ET ME 00 04 05 60 30 00 ME Ac TO 37 -2 -2 .0 00 D ti MO 80 1- 6- 00 14 CA ve OL 01 20 20 07 RE OL 80 17 17 81 1 13 PH TA AR RT MA RA CY TE 25 MG TA B FO 65 04 05 30 30 00 ME Ac LI 16 -2 -2 .0 00 D ti C 20 1- 6- 00 14 CA ve AC 36 20 20 07 RE ID 11 17 17 81 1 1 12 PH AR MG MA CY TA BL ET 00 04 05 60 30 00 ME Ac TA 90 -1 -1 .0 00 D ti IN 45 3- 9 00 14 CA ve N 82 20 20 00 RE D3 36 17 17 74 0 80 PH 40 AR 0 MA UN CY IT TA BL ET TA 00 04 05 30 30 00 ME Ac B- 90 -1 -1 .0 00 D ti A- 40 4- 9 00 14 CA ve 53 20 20 05 RE TE 08 17 17 38 0 57 PH TA AR BL MA ET CY AT 60 04 05 30 30 00 ME Ac OR 50 -1 -1 .0 00 D ti VA 52 2- 2- [address] 67 20 20 01 RE AT 10 17 17 22 IN 9 39 PH AR 80 MA CY MG TA BL ET LI 43 04 05 30 30 00 ME Ac SI 54 -0 -0 .0 00 D ti NO 70 4- 5 13 CA ve MO 35 20 20 98 RE IL 21 17 17 64 5 1 76 PH AR MG MA CY TA BL ET LE 31 04 05 60 30 00 ME Ac VE 72 -0 -0 .0 00 D ti TI 20 5- 5 13 CA ve RA 53 20 20 99 RE CE 70 17 17 45 TA 5 87 PH M AR 50 MA 0 CY MG TA BL ET PA 00 04 05 30 30 00 ME Ac NT 09 -0 -0 .0 00 D ti OP 30 5- 5- 00 13 CA ve RA 01 20 20 99 RE ZO 29 17 17 45 LE 8 86 PH AR SO MA D CY DR 40 MG TA B MA 00 04 05 60 30 00 ME Ac GN 60 -0 -0 .0 00 D ti ES 30 5- 5- 00 13 CA ve IU 20 20 20 99 RE M 92 17 17 45 OX 2 85 PH ID AR E MA 40 CY 0 MG TA BL ET 00 04 05 30 30 00 ME Ac PI 90 -0 -0 .0 00 D ti RI 46 5- 5- 00 13 CA ve N 28 20 20 99 RE 81 88 17 17 45 9 84 PH MG AR MA CH CY EW AB LE TA BL ET FO 65 03 04 30 30 00 ME Ac LI 16 -2 -2 .0 00 D ti C 20 4- 8- 00 13 CA ve AC 36 20 20 93 RE ID 11 17 17 91 1 1 70 PH AR MG MA CY TA BL ET ME 00 03 04 60 30 00 ME Ac TO 37 -2 -2 .0 00 D ti MO 80 4- 8- 00 13 CA ve OL 01 20 20 93 RE OL 80 17 17 91 1 71 PH TA AR RT MA RA CY TE 25 MG TA B 00 03 04 60 30 00 ME Ac TA 90 -1 -2 .0 00 D ti IN 45 7- 1- 00 13 CA ve N 82 20 20 90 RE D3 36 17 17 65 0 91 PH 40 AR 0 MA UN CY IT TA BL ET AT 60 03 04 30 30 00 ME Ac OR 50 -1 -1 .0 00 D ti VA 52 3- 4- [address] 67 20 20 87 RE AT 10 17 17 74 IN 9 20 PH AR 80 MA CY MG TA BL ET LI 00 03 04 30 30 00 ME Ac SI 60 -0 -0 .0 00 D ti NO 34 6- 7- 00 13 CA ve MO 21 20 20 84 RE IL 03 17 17 30 5 2 91 PH AR MG MA CY TA BL ET MA 00 03 04 60 30 00 ME Ac GN 60 -0 -0 .0 00 D ti ES 30 7- 7- 00 13 CA ve IU 20 20 20 84 RE M 92 17 17 80 OX 2 76 PH ID AR E MA 40 CY 0 MG TA BL ET PA 00 03 04 30 30 00 ME Ac NT 09 -0 -0 .0 00 D ti OP 30 7- 7- 00 13 CA ve RA 01 20 20 84 RE ZO 29 17 17 80 LE 8 77 PH AR SO MA D CY DR 40 MG TA B 00 03 04 30 30 00 ME Ac PI 90 -0 -0 .0 00 D ti RI 46 7- 7- 00 13 CA ve N 28 20 20 84 RE 81 88 17 17 80 9 75 PH MG AR MA CH CY EW AB LE TA BL ET LE 31 03 04 60 30 00 ME Ac VE 72 -0 -0 .0 00 D ti TI 20 7- 7- 00 13 CA ve RA 53 20 20 84 RE CE 70 17 17 80 TA 5 78 PH M AR 50 MA 0 CY MG TA BL ET FO 65 02 03 30 30 00 ME Ac LI 16 -2 -2 .0 00 D ti C 20 3- 4- 00 13 CA ve AC 36 20 20 79 RE ID 11 17 17 01 1 1 85 PH AR MG MA CY TA BL ET ME 00 02 03 60 30 00 ME Ac TO 37 -2 -2 .0 00 D ti MO 80 3- 4- 00 13 CA ve OL 01 20 20 79 RE OL 80 17 17 01 1 86 PH TA AR RT MA RA CY TE 25 MG TA B AT 59 02 03 30 30 00 ME Ac OR 76 -1 -1 .0 00 D ti VA 20 3- 7- [address] 15 20 20 70 RE AT 80 17 17 69 IN 2 14 PH AR 80 MA CY MG TA BL ET LI 00 02 03 30 30 00 ME Ac SI 60 -0 -1 .0 00 D ti NO 34 6- 0- 00 13 CA ve MO 21 20 20 66 RE IL 03 17 17 39 5 2 16 PH AR MG MA CY TA BL ET MA 00 02 03 60 30 00 ME Ac GN 60 -0 -1 .0 00 D ti ES 30 6- 0- 00 13 CA ve IU 20 20 20 57 RE M 92 17 17 71 OX 2 14 PH ID AR E MA 40 CY 0 MG TA BL ET 00 02 03 60 30 00 ME Ac TA 90 -0 -1 .0 00 D ti IN 45 6- 0- 00 13 CA ve N 82 20 20 57 RE D3 36 17 17 71 0 22 PH 40 AR 0 MA UN CY IT TA BL ET PA 00 02 03 30 30 00 ME Ac NT 09 -0 -1 .0 00 D ti OP 30 6- 0- 00 13 CA ve RA 01 20 20 57 RE ZO 29 17 17 71 LE 8 18 PH AR SO MA D CY DR 40 MG TA B 00 02 03 30 30 00 ME Ac PI 90 -0 -1 .0 00 D ti RI 46 6- 0- 00 13 CA ve N 28 20 20 57 RE 81 88 17 17 71 9 11 PH MG AR MA CH CY EW AB LE TA BL ET LE 31 02 03 60 30 00 ME Ac VE 72 -0 -1 .0 00 D ti TI 20 6- 0- 00 13 CA ve RA 53 20 20 70 RE CE 70 17 17 25 TA 5 19 PH M AR 50 MA 0 CY MG TA BL ET FO 65 01 03 30 30 00 ME Ac LI 16 -2 -0 .0 00 D ti C 20 7- 3- 00 13 CA ve AC 36 20 20 57 RE ID 11 17 17 71 1 1 13 PH AR MG MA CY TA BL LL ET C ME 00 01 03 60 30 00 ME Ac TO 37 -2 -0 .0 00 D ti MO 80 7- 3- 00 13 CA ve OL 01 20 20 57 RE OL 80 17 17 71 1 17 PH TA AR RT MA RA CY TE LL 25 C MG TA B AT 59 01 02 30 30 00 ME Ac OR 76 -1 -1 .0 00 D ti VA 20 6- 7- [address] 15 20 20 57 RE AT 80 17 17 71 IN 2 12 PH AR 80 MA CY MG LL TA C BL ET LI 00 01 02 30 30 00 ME Ac SI 60 -0 -1 .0 00 D ti NO 34 9- 0- 00 13 CA ve MO 21 20 20 57 RE IL 03 17 17 71 5 2 26 PH AR MG MA CY TA BL LL ET C LE 31 01 02 60 30 00 ME Ac VE 72 -0 -1 .0 00 D ti TI 20 9- 0- 00 13 CA ve RA 53 20 20 57 RE CE 71 17 17 71 TA 2 24 PH M AR 50 MA 0 CY MG LL TA C BL ET PA 00 01 02 30 30 00 ME Ac NT 09 -0 -0 .0 00 D ti OP 30 2- 3- 00 13 CA ve RA 01 20 20 52 RE ZO 29 17 17 98 LE 8 85 PH AR SO MA D CY DR LL 40 C MG TA B IS 00 02 30 30 00 ME Ac ON 55 -0 -0 .0 00 D ti IA 50 2- 3- 00 13 CA ve ZI 07 20 20 52 RE D 10 17 17 98 30 2 84 PH 0 AR MG MA CY TA BL LL ET C FO 65 12 01 30 30 00 ME Ac LI 16 -2 -2 .0 00 D ti C 20 3- 7- 00 13 CA ve AC 36 20 20 48 RE ID 11 16 17 83 1 1 25 PH AR MG MA CY TA BL LL ET C ME 00 12 01 60 30 00 ME Ac TO 37 -2 -2 .0 00 D ti MO 80 3- 7- 00 13 CA ve OL 01 20 20 48 RE OL 80 16 17 83 1 26 PH TA AR RT MA RA CY TE LL 25 C MG TA B QU 16 12 01 60 30 00 ME Ac ET 72 -2 -2 .0 00 D ti IA 90 3- 7- 00 13 CA ve PI 14 20 20 48 RE NE 60 16 17 83 1 27 PH FU AR MA MA RA CY TE LL 50 C MG TA B MA 00 12 01 60 30 00 ME Ac GN 60 -2 -2 .0 00 D ti ES 30 8- 7- 00 13 CA ve IU 20 20 20 50 RE M 92 16 17 59 OX 2 98 PH ID AR E MA 40 CY 0 MG LL C TA BL ET 00 12 30 30 00 ME Ac PI 90 -2 -2 .0 00 D ti RI 46 9- 7- 00 13 CA ve N 28 20 20 51 RE 81 88 16 17 37 9 16 PH MG AR MA CH CY EW AB LL LE C TA BL ET 00 12 60 30 00 ME Ac TA 90 -2 -2 .0 00 D ti IN 45 9- 7- 00 13 CA ve N 82 20 20 51 RE D3 36 16 17 37 0 17 PH 40 AR 0 MA UN CY IT LL TA C BL ET 00 12 30 30 00 ME Ac TA 90 -1 -2 .0 00 D ti IN 40 7- 0- 00 13 CA ve N 52 20 20 45 RE B- 06 16 17 93 6 0 25 PH 50 AR MA MG CY TA LL BL C ET CA 00 12 90 30 00 ME Ac RB 09 -0 -0 .0 00 D ti AM 30 2- 9- 00 13 CA ve AZ 10 20 20 38 RE EP 90 16 17 49 IN 1 97 PH E AR 20 MA 0 CY MG LL TA C BL ET PA 00 12 30 30 00 ME Ac NT 09 -0 -0 .0 00 D ti OP 30 3- 9- 00 13 CA ve RA 01 20 20 39 RE ZO 29 16 17 16 LE 8 35 PH AR SO MA D CY DR LL 40 C MG TA B RI 68 12 01 60 30 00 ME Ac FA 18 -0 -0 .0 00 D ti MP 00 5- 9- 00 13 CA ve IN 65 20 20 39 RE 90 16 17 60 30 7 31 PH 0 AR MG MA CY CA PS LL UL C E IS 00 12 30 30 00 ME Ac ON 55 -0 -0 .0 00 D ti IA 50 5- 9- 00 13 CA ve ZI 07 20 20 39 RE D 10 16 17 90 30 2 75 PH 0 AR MG MA CY TA BL LL ET C AT 59 12 01 30 30 00 ME Ac OR 76 -0 -0 .0 00 D ti VA 20 7- 9- [address] 15 20 20 40 RE AT 80 16 17 98 IN 2 16 PH AR 80 MA CY MG LL TA C BL ET 00 06 06 0 16 4 WA 13 ME Ac 59 -1 -1 .0 LG 08 AD ti 10 3- 3- 00 RE 82 E ve 34 [address] 90 11 11 S EV 5 #1 EN 02 D 06 # 10 20 6 AC 00 02 03 00 10 1 WA 11 No Ac ET 2 -1 .0 LG 96 t ti AM 30 3- 2- 00 RE 93 Av ve IN 15 20 20 EN 6 ai OP 01 09 09 S la HE 0 (0 bl N- 12 e CO 06 D ) #3 TA BL ET Immunization Name Date Rout CVX Reac Dose Comm Prov Is Faci e tion ent ider Refu lity Give sed n IIV4 11-0 158 [facility] No [facility] 9-20 O O VACC 16 DIST DIST RICT RICT SPLI T HLTH HLTH VIRU S DEPT DEPT 0.5 ADRIANNA ADRIANNA ML DOS FOR IM USE Procedures Procedure DOS Code Location Performer Comment DRUG 29441 LAB CAR LAB CAR SCREEN 7 [facility] QUANTITAT [employer] HOLDINGS LAUREN LEVETIRAC ETAM COMPREHEN 06107 [facility] SIVE [facility] METABOLIC INC INC PANEL DRUG 11768 [facility] SCREEN 7 [facility] QUANTITAT [place] [address] [place] HEAD/BRAI 7 MEDICAL N W/O IMAGING CONTRAST ASS MATERIAL URNLS DIP 15773 [facility] STICK/TAB INC INC LET REAGENT AUTO MICROSCOP Y GROUND A0425 [facility] AMBULANCE PER SERVICE SERVICE STATUTE MILE FINAL G9638 [place] [facility] REPORTS 7 MEDICAL W/O DOC IMAGING 1/MORE ASS DOSE REDUCTION TECH BLOOD 84363 [facility] COUNT 7 [facility] COMPLETE INC INC AUTO&AUTO DIFRNTL WBC AMB A0427 [facility] SERVICE 7 AMBULANCE AMBULANCE ALS SERVICE SERVICE EMERGENCY TRANSPORT LEVEL 1 NONEMERG A0120 [facility] FEDERATED TRNSPRT: 7 MINI-BUS TRANSPORT TRANSPORT MTN ATION SER ATION SER AREA/OT SYS SBSQ 15508 [facility] FACILITY CARE/DAY E/M STABLE 10 MIN COLLECTIO 62431 SAUL Greenberg VENOUS 7 [facility] BLOOD INC INC VENIPUNCT URE HEPATITIS 76310 [facility] A 7 [facility] ANTIBODY INC INC HAAB COMPREHEN 21010 [facility] SIVE 7 [facility] METABOLIC INC INC PANEL ANTINUCLE 28547 [facility]GH[facility] AR 7 [facility] [place] [address] SA[facility] HUGHES PHOSPHATA 7 [facility] SE INC INC ALKALINE ISOENZYME S PROTHROMB 89708 SA[facility]GHES IN TIME 7 [facility] INC INC FLUORESCE 34490 [facility] NT 7 [facility] NONNFCT INC INC AGT ANTB SCREEN EA ANTIBODY BLOOD 18516 [facility]GHES COUNT 7 [facility] COMPLETE INC INC AUTO&[place] [address] SA[facility] HU[facility] GAMMAGLOB 7 [facility] ULIN IGA INC INC IGD IGG IGM EACH HEPATITIS 22651 AS[facility] HU[facility]ES B SURF 7 [facility] [address] SA[facility] HUGHES HEPATITIS 7 [facility] B INC INC SURFACE ANTIGEN NFCT AGNT 87358 SA[facility] HUGHES GENOTYP 7 [facility] NUCLEIC INC INC ACID HEPATITIS C VIRUS BLOOD 33637 COMBINED COMBINED COUNT 7 PHYSICIAN PHYSICIAN COMPLETE S LA S LA AUTO&AUTO DIFRNTL WBC 25 37941 LAB CAR LAB CAR HYDROXY 7 [facility] INCLUDES HOLDINGS HOLDINGS FRACTIONS IF PERFORMED COMPREHEN 85420 COMBINED COMBINED SIVE 7 PHYSICIAN PHYSICIAN METABOLIC S LA S LA PANEL DRUG 64137 LAB CAR LAB CAR SCREEN 7 [place] QUANTITAT [employer] HOLD[employer] LAUREN LEVETIRAC ETAM LIPID 96758 COMBINED COMBINED PANEL 7 PHYSICIAN PHYSICIAN S LA S LA DRUG 46051 LAB CAR LAB CAR SCREEN 7 [place] QUANTITAT [employer] HOLDINGS LAUREN LEVETIRAC ETAM DRUG 78300 [facility] HUGHES SCREEN 7 [facility] QUANTITAT INC INC LAUREN LEVETIRAC ETAM COMPREHEN 78077 [facility] HUGHES SIVE 7 [facility] METABOLIC INC INC PANEL GROUND A0425 [facility] MILEAGE 7 AMBULANCE AMBULANCE PER SERVICE SERVICE STATUTE MILE AMB A0427 [facility] SERVICE 7 AMBULANCE AMBULANCE ALS SERVICE SERVICE EMERGENCY TRANSPORT LEVEL 1 BLOOD 82709 SA[facility] HUGHES COUNT 7 [facility] COMPLETE INC INC AUTO&AUTO DIFRNTL WBC SBSQ 30985 [facility] NURSING 7 FACILITY CARE/DAY E/M STABLE 10 MIN SBSQ 98018 [facility] NURSING 7 FACILITY CARE/DAY E/M STABLE 10 MIN DRUG 90490 LAB CAR LAB CAR SCREEN 7 [facility] [place] QUANTITAT [employer] HOLDINGS LAUREN LEVETIRAC [place] ECG 31727 [place] MIK[place]IL ROUTINE 7 MEDICAL ECG SERV W/LEAST FOUNDATIO 12 LDS N I&R ONLY NONEMERG A0120 FEDERATED FEDERATED TRNSPRT: 7 MINI-BUS TRANSPORT TRANSPORT MTN ATION SER ATION SER AREA/OTH SYS E/M 52563 [facility]NEY KAUFFMANAWAIS ANNUAL 7 NURSING FACILITY ASSESS STABLE 30 MIN COMPREHEN 72777 COMBINED COMBINED SIVE 7 PHYSICIAN PHYSICIAN METABOLIC S LA S LA PANEL LIPID 38594 COMBINED COMBINED PANEL 7 PHYSICIAN PHYSICIAN S LA S LA BLOOD 84447 COMBINED COMBINED COUNT 7 PHYSICIAN PHYSICIAN COMPLETE S LA S LA AUTO&AUTO DIFRNTL WBC 25 80521 COMBINED COMBINED HYDROXY 7 PHYSICIAN PHYSICIAN INCLUDES S LA S LA FRACTIONS IF PERFORMED RADIOLOGI 06618 EXPRESS EXPRESS C EXAM 7 MOBILE MOBILE CHEST 2 DIAGNOSTI DIAGNOSTI VIEWS C SE C SE FRONTAL&L ATERAL LIPID 39209 COMBINED COMBINED PANEL 7 PHYSICIAN PHYSICIAN S LA S LA COMPREHEN 31758 COMBINED COMBINED SIVE 7 PHYSICIAN PHYSICIAN METABOLIC S LA S LA PANEL COLLECTIO 73843 COMBINED COMBINED N VENOUS 7 PHYSICIAN PHYSICIAN BLOOD S LA S LA VENIPUNCT URE 82066 COMBINED COMBINED HYDROXY 7 PHYSICIAN PHYSICIAN INCLUDES S LA S LA FRACTIONS IF PERFORMED BLOOD 34325 COMBINED COMBINED COUNT 7 PHYSICIAN PHYSICIAN COMPLETE S LA S LA AUTO&AUTO DIFRNTL WBC INITIAL 52267 [facility] NURSING 7 FACILITY CARE/DAY 25 MINUTES NONEMERG A0120 FEDERATED FEDERATED TRNSPRT: 7 MINI-BUS TRANSPORT TRANSPORT MTN ATION SER ATION SER AREA/OTH SYS INITIAL 56366 [place] ECHOL[place] INPATIENT 7 MEDICAL CONSULT SERV NEW/ESTAB FOUNDATIO PT 80 N MIN ECG 88739 [place] HUDS[place] ROUTINE 7 MEDICAL ECG SERV W/LEAST FOUNDATIO 12 LDS N I&R ONLY ECG 44396 [place] BATOOL ROUTINE 7 MEDICAL ECG SERV W/LEAST FOUNDATIO 12 LDS N I&R ONLY ECG 57895 [place] ROUTINE 7 MEDICAL ECG SERV W/LEAST FOUNDATIO 12 LDS N I&[place] [address] [place]OTT HEAD/BRAI 7 MEDICAL N W/O SERV CONTRAST FOUNDATIO MATERIAL N RADIOLOGI 72331 [place] [facility] C 7 MEDICAL EXAMINATI IMAGING ON CHEST ASS SINGLE VIEW FRONTAL CT LUMBAR 22139 [place] ORR SPINE 7 MEDICAL KEELY W/O SERV CONTRAST FOUNDATIO MATERIAL N RADIOLOGI 86592 [place] ORR C 7 MEDICAL KEELY EXAMINATI SERV ON PELVIS FOUNDATIO 1/[address] [place] [address] [place] ABDOMEN & 7 MEDICAL KEELY PELVIS SERV W/CONTRAS FOUNDATIO T N MATERIAL SIMPLE 25541 [place] AZIZ REPAIR 7 MEDICAL F/E/E/N/L SERV /M FOUNDAT[place] 2.6CM[place] [place] [address] [place] MAXILLOFA 7 MEDICAL KEELY CIAL W/[place] [address] [place] ANGIOGRAP 7 MEDICAL KEELY HY HEAD SERV W/CONTRAS [place] T/[place] [address] [place] OR[place] ANGIOGRAP 7 MEDICAL KEELY HY NECK SERV W/CONTRAS FOUNDAT[place] T/[place] [address] [place] ANGIOGRAP 7 MEDICAL KEELY HY CHEST SERV W/CONTR[place] [address] [place] CERVICAL 7 MEDICAL KEELY SPINE W/O SERV CONTRAST FOUNDATIO MATERIAL N ECG 78615 [place] BATOOL ROUTINE 7 MEDICAL ECG SERV W/LEAST FOUNDATIO 12 LDS N I&R ONLY GROUND A0425 [facility] MILEAGE 7 AMBULANCE AMBULANCE PER SERVICE SERVICE STATUTE MILE ROTARY A0436 AIR AIR WING AIR 7 METHODS METHODS MILEAGE [facility] PER STATUTE MILE ELECTROEN 11213 [facility] VIRI, CEPHALOGR 7 MEDICAL JR AM W/REC SERV AWAKE&[place] [address] [place] OR[place] THORACIC 7 MEDICAL KEELY SPINE W/O SERV CONTRAST FOUNDATIO MATERIAL N SBSQ [address] [facility] 7 MEDICAL CARE/DAY SERV 25 FOUNDATIO MINUTES N AMB A0431 AIR AIR SERVICE 7 METHODS METHODS CONVNTION [facility] AIR SRVC TRANSPORT [address] CRITICAL 80503 [facility] 7 PHYSICIAN ILL/INJUR S, [facility] ED PATIENT INIT 30-74 MIN AMB A0427 [facility] SERVICE 7 AMBULANCE AMBULANCE ALS SERVICE SERVICE EMERGENCY TRANSPORT LEVEL 1 REPAIR [id number] [facility] FACE SKIN 7 HEALTHCAR HEALTHCAR EXTERNAL E E APPROACH [facility] DRUG 85940 COMBINED COMBINED SCREEN 6 PHYSICIAN PHYSICIAN QUANTITAT S LA S LA LAUREN PHENYTOIN TOTAL COLLECTIO 25827 COMBINED COMBINED N VENOUS 6 PHYSICIAN PHYSICIAN BLOOD S LA S LA VENIPUNCT URE SBSQ 93404 [facility] 6 FACILITY CARE/DAY E/M STABLE 10 MIN DRUG 35627 COMBINED COMBINED SCREEN 6 PHYSICIAN PHYSICIAN QUANTITAT S LA S LA LAUREN PHENYTOIN TOTAL COLLECTIO 37307 COMBINED COMBINED N VENOUS 6 PHYSICIAN PHYSICIAN BLOOD S LA S LA VENIPUNCT URE COLLECTIO 60119 COMBINED COMBINED N VENOUS 6 PHYSICIAN PHYSICIAN BLOOD S LA S LA VENIPUNCT URE DRUG 60868 COMBINED COMBINED SCREEN 6 PHYSICIAN PHYSICIAN QUANTITAT S LA S LA LAUREN PHENYTOIN TOTAL DRUG 43652 COMBINED COMBINED SCREEN 6 PHYSICIAN PHYSICIAN QUANTITAT S LA S LA LAUREN PHENYTOIN TOTAL COLLECTIO 69477 COMBINED COMBINED N VENOUS 6 PHYSICIAN PHYSICIAN BLOOD S LA S LA VENIPUNCT URE COLLECTIO 61812 COMBINED COMBINED N VENOUS 6 PHYSICIAN PHYSICIAN BLOOD S LA S LA VENIPUNCT URE DRUG 29998 COMBINED COMBINED SCREEN 6 PHYSICIAN PHYSICIAN QUANTITAT S LA S LA LAUREN PHENYTOIN TOTAL HEPATIC 76195 COMBINED COMBINED FUNCTION 6 PHYSICIAN PHYSICIAN PANEL S LA S LA COLLECTIO 36912 COMBINED COMBINED N VENOUS 6 PHYSICIAN PHYSICIAN BLOOD S LA S LA VENIPUNCT URE DRUG 39421 COMBINED COMBINED SCREEN 6 PHYSICIAN PHYSICIAN QUANT S LA S LA DIPROPYLA CETIC ACID FREE RADIOLOGI 94704 [facility] C EXAM 6 MEDICAL CHEST 2 IMAGING VIEWS ASS FRONTAL&[place] [address] [facility] ALL HEAD/BRAI 6 MEDICAL N W/O IMAGING CONTRAST ASS MATERIAL INITIAL 96829 [facility]ULEY[facility] OBSERVATI 6 [facility] CARE/DAY MED 30 MINUTES SBSQ 52396 [facility] S[facility] FACILITY CARE/DAY E/M STABLE 10 MIN PARING/CU 57462 BRAUDIS BRAUDIS TTING 6 BENIGN HYPERKERA TOTIC LESION >4 TRIMMING 01740 BRAUDIS BRAUDIS NONDYSTRO 6 PHIC NAILS ANY NUMBER DEBRIDEME 99292 BRAUDIS BRAUDIS NT NAIL 6 ANY METHOD 1-5 HEPATIC 71924 COMBINED COMBINED FUNCTION 6 PHYSICIAN PHYSICIAN PANEL S LA S LA COLLECTIO 00301 COMBINED COMBINED N VENOUS 6 PHYSICIAN PHYSICIAN BLOOD S LA S LA VENIPUNCT URE IIV4 VACC 60279 [facility] VIRUS 0.5 HLTH DEPT HLTH DEPT ML DOS ADRIANNA ADRIANNA FOR IM USE NONEMERG [id number] [facility] FEDER[facility] TRNSPRT: 6 [facility]SP[facility] TRANSPORT MTN ATION SER ATION SER AREA/OTH SYS SBSQ 49178 [facility] FACILITY CARE/DAY E/M STABLE 10 MIN DRUG 53918 COMBINED COMBINED SCREEN 6 PHYSICIAN PHYSICIAN QUANTITAT S LA S LA LAUREN PHENYTOIN TOTAL COLLECTIO 28880 COMBINED COMBINED N VENOUS 6 PHYSICIAN PHYSICIAN BLOOD S LA S LA VENIPUNCT URE DRUG 14485 COMBINED COMBINED SCREEN 6 PHYSICIAN PHYSICIAN QUANTITAT S LA S LA LAUREN PHENYTOIN TOTAL GROUND A0425 [facility] MILEAGE 6 AMBULANCE AMBULANCE PER SERVICE SERVICE STATUTE MILE AMBULANCE A0429 [facility] SERVICE 6 AMBULANCE AMBULANCE BLS SERVICE SERVICE EMERGENCY TRANSPORT SIMPLE 07336 [facility] [place] REPAIR 6 PHYSICIAN AMOL F/E/E/N/L S, PLLC /M 2.5CM/< [place] [address] JASMINE LING HEAD/BRAI 6 MEDICAL N W/O IMAGING CONTRAST ASS MATERIAL AMBULANCE A0429 [facility] SERVICE 6 AMBULANCE AMBULANCE BLS SERVICE SERVICE EMERGENCY TRANSPORT GROUND A0425 [facility] MILEAGE 6 AMBULANCE AMBULANCE PER SERVICE SERVICE STATUTE MILE COLLECTIO 87212 COMBINED [place] N VENOUS 6 PHYSICIAN TING BLOOD S LA VENIPUNCT URE DRUG 82047 COMBINED [place] SCREEN 6 PHYSICIAN TING QUANTITAT S LA LAUREN PHENYTOIN TOTAL NONEMERG A0120 [facility]ERATED FEDERATED TRNSPRT: 6 [facility]SPORT TRANSPORT MTN ATION SER ATION SER AREA/OTH SYS SBSQ 83813 [facility] 6 SUSHILA SUSHILA FACILITY CARE/DAY E/M STABLE 10 MIN GROUND A0425 [facility] MILEAGE 6 AMBULANCE CLEVE PER SERVICE STATUTE MILE AMBULANCE A0429 [facility] SERVICE 6 AMBULANCE CLEVE BLS SERVICE EMERGENCY TRANSPORT AMB A0427 [facility] SERVICE 6 AMBULANCE AMBULANCE ALS SERVICE SERVICE EMERGENCY TRANSPORT LEVEL 1 COLLECTIO 57004 COMBINED SHASHY N VENOUS 6 PHYSICIAN PEDRO BLOOD S LA VENIPUNCT URE DRUG 49154 COMBINED SHASHY SCREEN 6 PHYSICIAN PEDRO QUANTITAT S LA LAUREN PHENYTOIN TOTAL COLLECTIO 56573 COMBINED RICE JAM N VENOUS 6 PHYSICIAN BLOOD S LA VENIPUNCT URE AMBULANCE A0429 [facility] SERVICE 6 AMBULANCE MAR BLS SERVICE EMERGENCY TRANSPORT GROUND A0425 [facility] MILEAGE 6 AMBULANCE MAR PER SERVICE STATUTE MILE HEPATIC 28730 COMBINED RICE JAM FUNCTION 6 PHYSICIAN PANEL S LA SBSQ 48505 KOURTNEY OCONNELL NURSING 6 SUSHILA SUSHILA FACILITY CARE/DAY E/M STABLE 10 MIN HEPATIC 41150 COMBINED COMBINED FUNCTION 6 PHYSICIAN PHYSICIAN PANEL S LA S LA COLLECTIO 35244 COMBINED COMBINED N VENOUS 6 PHYSICIAN PHYSICIAN BLOOD S LA S LA VENIPUNCT URE SBSQ 82855 [facility]RT[facility] OCONNELL NURSING 6 SUSHILA SUSHILA FACILITY CARE/DAY E/M STABLE 10 MIN NONEMERG A0120 FEDERATED FEDERATED TRNSPRT: 6 MINI-BUS TRANSPORT TRANSPORT MTN ATION SER ATION SER ARE[place] [address] [facility] 6 [facility] PATHOLOGY MED CTR GROSS&AMOL ROSCOPIC EXAM ANESTHESI 37991 ANESTHESI HASSOUN A 6 A GROUP BHAVIK INTRAORAL PRACTICE WITH BIOPSY NOS 25 43499 COMBINED COMBINED HYDROXY 6 PHYSICIAN PHYSICIAN INCLUDES S LA S LA FRACTIONS IF PERFORMED BLOOD 91236 COMBINED COMBINED COUNT 6 PHYSICIAN PHYSICIAN COMPLETE S LA S LA AUTO&AUTO DIFRNTL WBC PROTHROMB 34430 COMBINED COMBINED IN TIME 6 PHYSICIAN PHYSICIAN S LA S LA COLLECTIO 53244 COMBINED COMBINED N VENOUS 6 PHYSICIAN PHYSICIAN BLOOD S LA S LA VENIPUNCT URE LIPID 55911 COMBINED COMBINED PANEL 6 PHYSICIAN PHYSICIAN S LA S LA COMPREHEN 43182 COMBINED COMBINED SIVE 6 PHYSICIAN PHYSICIAN METABOLIC S LA S LA PANEL HEPATIC 32548 COMBINED COMBINED FUNCTION 6 PHYSICIAN PHYSICIAN PANEL S LA S LA COLLECTIO 91102 COMBINED COMBINED N VENOUS 6 PHYSICIAN PHYSICIAN BLOOD S LA S LA VENIPUNCT URE DRUG 38733 COMBINED COMBINED SCREEN 6 PHYSICIAN PHYSICIAN QUANTITAT S LA S LA LAUREN PHENYTOIN TOTAL SBSQ 56774 KOURTNEY OCONNELL NURSING 6 SUSHILA SUSHILA FACILITY CARE/DAY E/M STABLE 10 MIN GROUND A0425 [facility] MILEAGE 6 AMBULANCE AMBULANCE PER SERVICE SERVICE STATUTE MILE AMB A0427 [facility] SERVICE 6 AMBULANCE AMBULANCE ALS SERVICE SERVICE EMERGENCY TRANSPORT LEVEL 1 SBSQ 54736 KOURTNEY OCONNELL NURSING 6 SUSHILA SUSHILA FACILITY CARE/DAY E/M STABLE 10 MIN NONEMERG A0120 FEDERATED FEDERATED TRNSPRT: 6 MINI-BUS TRANSPORT TRANSPORT MTN ATION SER ATION SER AREA/OTH SYS COLLECTIO 91847 COMBINED COMBINED N VENOUS 6 PHYSICIAN PHYSICIAN BLOOD S LA S LA VENIPUNCT URE HEPATIC 40657 COMBINED COMBINED FUNCTION 6 [place]YS[place] [address] JASMINE LING HEAD/BRAI 6 MEDICAL N W/O IMAGING CONTRAST ASS MATERIAL GROUND A[address] [place] [address] 6 AMBULANCE AMBULANCE PER SERVICE SERVICE STATUTE MILE AMBULANCE A0429 [facility] [place] [place] 6 AMBULANCE AMBULANCE BLS SERVICE SERVICE EMERGENCY TRANSPORT RADEX 75848 JASMINE LING WRIST 6 MEDICAL COMPLETE IMAGING MINIMUM 3 ASS VIEWS AMB A0427 [facility] SERVICE 6 AMBULANCE AMBULANCE ALS SERVICE SERVICE EMERGENCY TRANSPORT LEVEL 1 SBSQ 93696 [facility] NURSING 6 SUSHILA SUSHILA FACILITY CARE/DAY E/M STABLE 10 MIN COLLECTIO 91959 COMBINED COMBINED N VENOUS 6 PHYSICIAN PHYSICIAN BLOOD S LA S LA VENIPUNCT URE HEPATIC 32934 COMBINED COMBINED FUNCTION 6 [place]YS[place] [address] JASMINE LYNN HEAD/BRAI 6 MEDICAL BILL N W/O IMAGING CONTRAST ASS MATERIAL RADIOLOGI 69151 [facility] C 6 MEDICAL BILL EXAMINATI IMAGING ON CHEST ASS SINGLE VIEW FRONTAL GROUND A[address] [place] [address] 6 AMBULANCE AMBULANCE PER SERVICE SERVICE STATUTE MILE AMB A0427 [facility] SERVICE 6 AMBULANCE AMBULANCE ALS SERVICE SERVICE EMERGENCY TRANSPORT LEVEL 1 BLOOD 87515 COMBINED COMBINED COUNT 6 PHYSICIAN PHYSICIAN COMPLETE S LA S LA AUTO&AUTO DIFRNTL WBC 25 59805 COMBINED COMBINED HYDROXY 6 PHYSICIAN PHYSICIAN INCLUDES S LA S LA FRACTIONS IF PERFORMED COLLECTIO 60535 COMBINED COMBINED N VENOUS 6 PHYSICIAN PHYSICIAN BLOOD S LA S LA VENIPUNCT URE COMPREHEN 01661 COMBINED COMBINED SIVE 6 PHYSICIAN PHYSICIAN METABOLIC S LA S LA PANEL SBSQ 79959 [facility] SUSHILA SUSHILA FACILITY CARE/DAY E/M STABLE 10 MIN COLLECTIO 86171 COMBINED COMBINED N VENOUS 6 PHYSICIAN PHYSICIAN BLOOD S LA S LA VENIPUNCT URE HEPATIC 35840 COMBINED COMBINED FUNCTION 6 PHYSICIAN PHYSICIAN PANEL S LA S LA SBSQ 12827 [facility] OCONNELL NURSING 6 SUSHILA SUSHILA FACILITY CARE/DAY E/M STABLE 10 MIN COLLECTIO 00056 COMBINED COMBINED N VENOUS 6 PHYSICIAN PHYSICIAN BLOOD S LA S LA VENIPUNCT URE HEPATIC 51705 COMBINED COMBINED FUNCTION 6 PHYSICIAN PHYSICIAN PANEL S LA S LA E/M 47779 KOURTNEY OCONNELL ANNUAL 6 SUSHILA SUSHILA NURSING FACILITY ASSESS STABLE 30 MIN COLLECTIO 03509 COMBINED COMBINED N VENOUS 6 PHYSICIAN PHYSICIAN BLOOD S LA S LA VENIPUNCT URE LIPID 65686 COMBINED COMBINED PANEL 6 PHYSICIAN PHYSICIAN S LA S LA COMPREHEN 83671 COMBINED COMBINED SIVE 6 PHYSICIAN PHYSICIAN METABOLIC S LA S LA PANEL 25 16130 COMBINED COMBINED HYDROXY 6 PHYSICIAN PHYSICIAN INCLUDES S LA S LA FRACTIONS IF PERFORMED BLOOD 57034 COMBINED COMBINED COUNT 6 PHYSICIAN PHYSICIAN COMPLETE S LA S LA AUTO&AUTO DIFRNTL WBC SBSQ 15856 KOURTNEY OCONNELL NURSING 5 SUSHILA SUSHILA FACILITY CARE/DAY E/M STABLE 10 MIN HEPATIC 70662 COMBINED COMBINED FUNCTION 5 PHYSICIAN PHYSICIAN PANEL S LA S LA HEPATIC 73110 COMBINED COMBINED FUNCTION 5 PHYSICIAN PHYSICIAN PANEL S LA S LA SBSQ 50215 KOURTNEY OCONNELL NURSING 5 SUSHILA SUSHILA FACILITY CARE/DAY E/M STABLE 10 MIN GROUND A0425 [facility] 5 AMBULANCE AMBULANCE PER SERVICE SERVICE STATUTE [facility] ECG 17156 [facility] W/LEAST P 12 LDS I&[place] [address] [place] [facility] CERV[facility] 5 MEDICAL SPINE W/[place] [address] [place] SHANE HEAD/BRAI 5 MEDICAL BILL N W/O IMAGING CONTRAST ASS MATERIAL AMB A0427 [facility] SERVICE 5 AMBULANCE AMBULANCE ALS SERVICE SERVICE EMERGENCY TRANSPORT LEVEL 1 INITIAL 12601 KOURTNEY OCONNELL NURSING 5 [facility] FACILITY CARE/DAY 25 MINUTES SBSQ 94836 [facility] 5 [place] CARE/DAY PHYSICIAN 25 S ASSIST MINUTES SBSQ 46640 [facility] 5 [place] CARE/DAY PHYSICIAN 25 S ASSIST MINUTES SBSQ [address] [facility] 5 MEDICAL PRE CARE/DAY SERV 25 FOUNDATIO MINUTES N SBSQ 43810 [facility] 5 [place] CARE/DAY PHYSICIAN 25 S ASSIST MINUTES SBSQ 94254 [place] [address] MEDICAL PRE CARE/DAY SERV 25 FOUNDATIO MINUTES N SBSQ 28574 [place] [address] MEDICAL PRE CARE/DAY SERV 25 FOUNDATIO MINUTES N SBSQ 48031 [place] [address] MEDICAL PAD CARE/DAY SERV 25 FOUNDATIO MINUTES N SBSQ 61482 [place] [address] MEDICAL CARE/DAY SERV 25 FOUNDATIO MINUTES N SBSQ 60918 [place] [address] MEDICAL CARE/DAY SERV 25 FOUNDATIO MINUTES N SBSQ 86488 [place] [address] MEDICAL PAD CARE/DAY SERV [address] [place] [address] [place] KEENAN YODER HEAD/BRAI 5 MEDICAL N W/O SERV CONTRAST FOUNDATIO MATERIAL N FRENOPLAS 40181 [place] KEENAN BEBA TY SURG 5 MEDICAL REVJ SERV FRENUM EG FOUNDATIO N W/Z-PLAST Y SBSQ 04425 [place] [address] MEDICAL PAD CARE/DAY SERV 25 FOUNDATIO MINUTES N SBSQ 96720 [facility] 5 MEDICAL CARE/DAY SERV 25 FOUNDATIO MINUTES N RADIOLOGI 91460 [place] KASSIDY C EXAM 5 MEDICAL AYA MAR CHEST 2 SERV VIEWS FOUNDATIO FRONTAL&L N ATERAL RADEX 18168 [place] BLANCA BHAVIK ABDOMEN 1 5 MEDICAL SERV ANTEROPOS FOUNDATIO TERIOR N VIEW RADEX 06462 [place] ROLA NERIS ABDOMEN 1 5 MEDICAL SERV ANTEROPOS FOUNDATIO TERIOR N VIEW RADIOLOGI 65872 NE DANIA C 5 MEDICAL AMOL EXAMINATI SERV ON CHEST FOUNDATIO SINGLE N VIEW FRONTAL RADIOLOGI 16413 [place] DANIA C 5 MEDICAL AMOL EXAMINATI SERV ON CHEST FOUNDATIO SINGLE N VIEW FRONTAL RADIOLOGI 99209 [place] PRATEEK TAYLOR C 5 MEDICAL EXAMINATI SERV ON CHEST FOUNDATIO SINGLE N VIEW FRONTAL RADIOLOGI 99443 [place] PRATEEK C 5 MEDICAL EXAMINATI SERV ON CHEST FOUNDATIO SINGLE N VIEW FRONTAL ECG 40283 [place] BUCKY ROUTINE 5 MEDICAL AUTO BODY REPAIRER ECG SERV W/LEAST FOUNDATIO 12 LDS N I&R ONLY ECG 05558 [place] MIKHAIL CHI ROUTINE 5 MEDICAL ECG SERV W/LEAST FOUNDATIO 12 LDS N I&R ONLY SBSQ 58357 [place] [address] MEDICAL BERTA CARE/DAY SERV 35 FOUNDATIO MINUTES N RADIOLOGI 57045 [place] PRATEEK C 5 MEDICAL EXAMINATI SERV ON CHEST FOUNDATIO SINGLE N VIEW FRONTAL RADIOLOGI 16107 [place] PRATEEK C 5 MEDICAL EXAMINATI SERV ON CHEST FOUNDATIO SINGLE N VIEW FRONTAL CRITICAL 02280 [place] [facility] 5 MEDICAL ILL/INJUR SERV ED FOUNDATIO PATIENT N INIT 30-74 MIN CRITICAL 79556 [place] [facility] 5 MEDICAL BERTA ILL/INJUR SERV ED FOUNDATIO PATIENT N INIT 30-74 MIN RADIOLOGI 98953 [place] PRATEEK C 5 MEDICAL EXAMINATI SERV ON CHEST FOUNDATIO SINGLE N VIEW FRONTAL RADIOLOGI 27231 [place] DANIA C 5 MEDICAL AMOL EXAMINATI SERV ON CHEST FOUNDATIO SINGLE N VIEW FRONTAL CRITICAL 40753 [place] [facility] 5 MEDICAL BERTA ILL/INJUR SERV ED FOUNDATIO PATIENT N INIT 30-74 MIN RADIOLOGI 79201 [place] KASSIDY C 5 MEDICAL AYA MAR EXAMINATI SERV ON CHEST FOUNDATIO SINGLE N VIEW FRONTAL SBSQ 77916 [facility] 5 MEDICAL ZANE CARE/DAY SERV 35 FOUNDATIO MINUTES N SBSQ 62240 [facility] 5 MEDICAL ZANE CARE/DAY SERV 35 FOUNDATIO MINUTES N RADIOLOGI 07979 [place] JIN SUSHILA C 5 MEDICAL EXAMINATI SERV ON CHEST FOUNDATIO SINGLE N VIEW FRONTAL SBSQ 89965 [facility] 5 MEDICAL ZANE CARE/DAY SERV 35 FOUNDATIO MINUTES N RADIOLOGI 27924 [place] JIN SUSHILA C 5 MEDICAL EXAMINATI SERV ON CHEST FOUNDATIO SINGLE N VIEW FRONTAL RADIOLOGI 63976 [place] BLANCA EVERETTS C 5 MEDICAL EXAMINATI SERV ON CHEST FOUNDATIO SINGLE N VIEW FRONTAL CRITICAL 01658 [facility] 5 MEDICAL JUDIE ILL/INJUR SERV ED FOUNDATIO PATIENT N ADDL 30 MIN CYTP 59238 [facility] SL[facility] 5 Y OF KEENAN CELL [place] [facility] INTERPJ XCPT C/V CRITICAL 34951 [facility] 5 MEDICAL JUDIE ILL/INJUR SERV ED FOUNDATIO PATIENT N INIT 30-74 MIN THORACENT 41196 [facility] ESIS 5 MEDICAL ZANE NEEDLE/CA SERV TH PLEURA FOUNDATIO N W/IMAGING DRAINAGE [id number] [facility] RIGHT 5 Y Y PLEURAL [facility] CAVITY PERQ RESPIRATO [id number] [facility] AZLE 5 Y Y VENTILATI [facility] ON > 96 CONSECUTI VE HOURS INSERT [id number] [facility] ENDOTRACH 5 Y Y L AIRWAY [facility] TRACHEA KARIME/ART OPENING CRITICAL [address] [facility] 5 MEDICAL ILL/INJUR SERV ED FOUNDATIO PATIENT N INIT 30-74 MIN RADIOLOGI 56578 [facility] EVERETTS C 5 MEDICAL EXAMINATI SERV ON CHEST FOUNDATIO SINGLE N VIEW FRONTAL SBSQ 53794 [facility] 5 INGA CARE/DAY PHYSICIAN 35 SERVI MINUTES ECG 35907 [facility] ROUTINE 5 MEDICAL NAN ECG SERV W/LEAST FOUNDATIO 12 LDS N I&R ONLY SBSQ 42954 [place] [address] INGA CARE/DAY PHYSICIAN 35 SERVI MINUTES SBSQ 46496 [facility] 5 MEDICAL CARE/DAY SERV 25 FOUNDATIO MINUTES N SBSQ 53846 [facility] 5 MEDICAL CARE/DAY SERV 25 FOUNDATIO MINUTES N SBSQ 07555 [place] [address] INGA CARE/DAY PHYSICIAN 35 SERVI MINUTES RADIOLOGI 01701 [facility] 5 MEDICAL EXAMINATI SERV ON CHEST FOUNDATIO SINGLE N VIEW FRONTAL SBSQ 81869 [facility] 5 MEDICAL CARE/DAY SERV 35 FOUNDATIO MINUTES N SBSQ 92137 [place] [address] INGA CARE/DAY PHYSICIAN 25 SERVI MINUTES RADIOLOGI 31538 [facility] 5 MEDICAL AYA MAR EXAMINATI SERV ON CHEST FOUNDATIO SINGLE N VIEW FRONTAL SBSQ 45657 [place] [address] INGA ANNEL CARE/DAY PHYSICIAN 35 SERVI MINUTES SBSQ 96889 [place] [address] INGA ANNEL CARE/DAY PHYSIC[place] 25 [place] [address] [facility] ABDOMINAL 5 MEDICAL REAL SERV TIME FOUNDATIO W/IMAGE N DOCUMENTA TION RADIOLOGI 61066 [facility] 5 MEDICAL AYA MAR EXAMINATI SERV ON CHEST FOUNDATIO SINGLE N VIEW FRONTAL SBSQ 67391 [facility] 5 MEDICAL JUDIE CARE/DAY SERV 35 FOUNDATIO MINUTES N SBSQ 23837 [facility] 5 MEDICAL CARE/DAY SERV 35 FOUNDATIO MINUTES N RADEX 71633 [place] DAVID TING ABDOMEN 1 5 MEDICAL SERV ANTEROPOS FOUNDATIO TERIOR N VIEW RADIOLOGI 87940 NE DANIA 5 MEDICAL AMOL EXAMINATI SERV ON CHEST FOUNDATIO SINGLE N VIEW FRONTAL SBSQ 24233 [facility] 5 MEDICAL CARE/DAY SERV 35 FOUNDATIO MINUTES N SBSQ 86724 [facility] 5 MEDICAL CARE/DAY SERV 35 FOUNDATIO MINUTES N CYTP 75594 [facility] 5 Y OF JEREMY CELL [place] [facility] NT INTERP[place] XCP[place] C/[place] L[place] [address] [facility] ALEJANDRO MARTINEZ SURG 5 Y OF JEREMY PATHOLOGY [place] [facility] GROSS&AMOL ROSCOPIC EXAM RADIOLOGI 55369 NE DANIA 5 MEDICAL AMOL EXAMINATI SERV ON CHEST FOUNDATIO SINGLE N VIEW FRONTAL DRAINAGE [id number] [facility] LEFT 5 Y [facility] CAVITY PERCUTANE OUS INSERTION [id number] [facility] INFUSION 5 Y Y [facility] SUPERIOR VENA CAVA PERQ SBSQ 08570 [facility] 5 MEDICAL GARCIA JEAN-PAUL CARE/DAY SERV 25 FOUNDATIO MINUTES N RADIOLOGI 06408 [place] PRATEEK C 5 MEDICAL EXAMINATI SERV ON CHEST FOUNDATIO SINGLE N VIEW FRONTAL ECHO 10530 [facility] 5 MEDICAL 2D SERV W/WOM-MOD FOUNDATIO E COMPL N SPEC&COLR D SBSQ 28985 [place] [address] INGA ANNEL CARE/DAY PHYSICIAN 35 SERVI MINUTES INITIAL 42153 CHIDI FERNANDEZ [facility] INPATIENT 5 MEDICAL CONSULT SERV NEW/ESTAB FOUNDATIO PT 80 N MIN SBSQ 75831 [place] [address] INGA CARE/DAY PHYSICIAN [address] THORAX [address] [place] MIRZA TING W/O 5 MEDICAL CONTRAST SERV MATERIAL FOUNDATIO N SBSQ 83048 [place] [address] INGA CARE/DAY PHYSICIAN 35 SERVI MINUTES SBSQ 92493 [place] [address] INGA CARE/DAY PHYSICIAN 35 SERVI MINUTES ECG 40237 [facility] 5 MEDICAL NAN ECG SERV W/LEAST FOUNDATIO 12 LDS N I&R ONLY RADIOLOGI 28948 [place] KIRBY 5 MEDICAL KEELY EXAMINATI SERV LALO ON CHEST FOUNDATIO SINGLE N VIEW FRONTAL RADEX ABD 80263 [place] [facility] 5 MEDICAL SCO AQT ABD SERV W/S/E/D FOUNDATIO VIEWS 1 N VIEW CH SBSQ 47512 [place] [address] INGA CARE/DAY PHYSICIAN [address]BS[address] [facility] 5 INGA CARE/DAY PHYSICIAN 35 SERVI MINUTES SBSQ 33474 [place] [address] INGA CARE/DAY PHYSICIAN 35 SERVI MINUTES RADIOLOGI 34751 [place] PRATEEK 5 MEDICAL EXAMINATI SERV ON CHEST FOUNDATIO SINGLE N VIEW FRONTAL RADEX 62507 [place] DISANTIS ABDOMEN 1 5 MEDICAL ZANE SERV ANTEROPOS FOUNDATIO TERIOR N VIEW RADEX 81845 [place] DISANTIS ESOPHAGUS 5 MEDICAL ZANE SERV FOUNDATIO N SBSQ [address]141 [facility] 5 INGA CARE/DAY PHYSICIAN 35 SERVI MINUTES SBSQ 58447 [place] [address] INGA ANNEL CARE/DAY PHYSICIAN 25 SERVI MINUTES SBSQ 40514 [facility] 5 INGA ANNEL CARE/DAY PHYSICIAN 35 SERVI MINUTES RADIOLOGI 61591 [place] JIN SUSHILA C 5 MEDICAL EXAMINATI SERV ON CHEST FOUNDATIO SINGLE N VIEW FRONTAL SBSQ 13636 [place] [address] INGA ANNEL CARE/DAY PHYSICIAN 25 SERVI MINUTES SBSQ 30310 [place] [address] INGA ANNEL CARE/DAY PHYSICIAN 25 SERVI MINUTES SBSQ 42902 [place] [address] INGA ANNEL CARE/DAY PHYSICIAN 25 SERVI MINUTES SWALLOWIN 21884 [place] DISANTIS G FUNCJ 5 MEDICAL ZANE W/CINERAD SERV IOGRAPY/V FOUNDATIO IDRADIOG N SBSQ 35710 [place] [address] INGA ANNEL CARE/DAY PHYSICIAN 35 SERVI MINUTES RADIOLOGI 34876 [place] MIRZA TING C 5 MEDICAL EXAMINATI SERV ON CHEST FOUNDATIO SINGLE N VIEW FRONTAL SBSQ 55084 [place] [address] INGA ANNEL CARE/DAY PHYSICIAN 35 SERVI MINUTES RADIOLOGI 26837 [place] MIRZA TING C EXAM 5 MEDICAL CHEST 2 SERV VIEWS FOUNDATIO FRONTAL&L N ATERAL SBSQ 08615 [place] [address] INGA INGA CARE/DAY PHYSICIAN PHYSICIAN 25 SERVI SERVI MINUTES SBSQ 14317 [place] [address] INGA CARE/DAY PHYSICIAN 35 SERVI MINUTES SBSQ 26108 [place] [address] INGA CARE/DAY PHYSICIAN 25 SERVI MINUTES SBSQ 14955 [place] [address] INGA CARE/DAY PHYSICIAN 25 SERVI MINUTES SBSQ 18885 [place] [address] INGA CARE/DAY PHYSICIAN 25 SERVI [address] SBSQ 56769 [facility] 5 INGA CARE/DAY PHYSICIAN 25 SERVI MINUT[address] SBS[address] 03230 [facility] 5 INGA CARE/DAY PHYSICIAN 25 SERVI MINUTES SBSQ 62155 [facility] 5 INGA CARE/DAY PHYSICIAN 25 SERVI MINUTES SBSQ 29786 [facility] 5 INGA CARE/DAY PHYSICIAN 25 SERVI MINUTES SBSQ 66050 [facility] 5 INGA CARE/DAY PHYSICIAN 25 SERVI MINUTES INITIAL 98180 [place] STRUP TING INPATIENT 5 MEDICAL CONSULT SERV NEW/ESTAB FOUNDATIO PT 40 N MIN CRITICAL 32977 [place] [address] INGA ILL/INJUR PHYSICIAN ED SERVI PATIENT INIT 30-74 MIN DUP-SCAN 98040 CHIDI CANELA NERIS [facility] 5 MEDICAL ABDL/PEL/ SERV SCROT&/RP FOUNDATIO R ORGN N COM INITIAL 75455 [facility] 5 INGA CARE/DAY PHYSICIAN 70 SERVI MINUTES RADEX 63822 [place] SKYE PANTOJA FOREARM 2 5 MEDICAL GENO VIEWS SERV FOUNDATIO N RADEX 32121 [place] SKYE PANTOJA WRIST 5 MEDICAL GENO COMPLETE SERV MINIMUM 3 FOUNDATIO VIEWS N RADEX 81836 [place] SKYE PANTOJA ELBOW 5 MEDICAL GENO COMPLETE SERV MINIMUM 3 FOUNDATIO VIEWS N RADEX 90052 [place] SKYE PANTOJA HAND 5 MEDICAL GENO MINIMUM 3 SERV VIEWS FOUNDATIO N ECG 96979 [place] MIKHAIL CHI ROUTINE 5 MEDICAL ECG SERV W/LEAST FOUNDATIO 12 LDS N I&R ONLY RADIOLOGI 75417 [place] SKYE PANTOJA C 5 MEDICAL GENO EXAMINATI SERV ON CHEST FOUNDATIO SINGLE N VIEW FRONTAL BASIC 00535 [facility] METABOLIC 4 Y Y [facility] CALCIUM TOTAL BLOOD 78188 [facility] 4 Y Y [facility] AUTO&AUTO DIFRNTL WBC AMB A0427 IVORY IVORY SERVICE 3 FAYETTE FAYETTKirk ALS URBAN URBAN EMERGENCY COGOVT COGOVT TRANSPORT LEVEL 1 GROUND A0425 IVORY IVORY MILEAGE 3 FAYETTE FAYETTE PER URBAN [place] [address] [place] KELLY HEAD/BRAI 3 MEDICAL TING N W/[place] [address] [place] KELLY CERVICAL 3 MEDICAL TING SPINE W/O SERV CONTRAST FOUNDATIO MATERIAL PROF SVCS 09542 [facility] ALLG 3 HEALTHCAR MAR IMMNTX X E CENTER W/[place] [address] [place] HARMONY CERVICAL 3 MEDICAL ADRIANNA SPINE W/O SERV CONTRAST FOUNDATIO MATERIAL N ECG 02207 [place] PORTER MANJU ROUTINE 3 MEDICAL ECG SERV W/LEAST FOUNDATIO 12 LDS N I&[place] [address] [place] RASLAU HEAD/BRAI 3 MEDICAL FLA N W/O SERV CONTRAST FOUNDATIO MATERIAL RADIOLOGI 52039 [place] NICKELS C 3 MEDICAL ZANE EXAMINATI SERV ON CHEST FOUNDATIO SINGLE N VIEW FRONTAL GROUND A0425 IVORY IVORY MILEAGE 3 FAYETTE FAYETTE PER URBAN URBAN STATUTE COGOVT COGOVT MILE AMB A0427 IVORY IVORY SERVICE 3 FAYETTE FAYETTE ALS URBAN URBAN EMERGENCY COGOVT COGOVT TRANSPORT LEVEL 1 GROUND A0425 IVORY IVORY MILEAGE 3 FAYETTE FAYETTE PER URBAN URBAN STATUTE COGOVT COGOVT MILE AMBULANCE A0429 IVORY IVORY SERVICE 3 FAYETTE FAYETTE BLS URBAN URBAN EMERGENCY COGOVT COGOVT TRANSPORT ECG 01286 [place] HUDSON ROUTINE 3 MEDICAL NAN ECG SERV W/LEAST FOUNDATIO 12 LDS I&R ONLY RADIOLOGI 22437 [place] ROLA CORDON C EXAM 3 MEDICAL CHEST 2 SERV VIEWS FOUNDATIO FRONTAL&L N ATERAL GROUND A0425 IVORY IVORY MILEAGE 3 FAYETTE FAYETTE PER URBAN URBAN STATUTE COGOVT COGOVT MILE AMB A0427 IVORY IVORY SERVICE 3 FAYETTE FAYETTE ALS U[facility]AN U[facility] EMERGENCY [place] [address] [place] ROLA JAM CERVICAL 2 MEDICAL SPINE W/[place] [address] [place] PEG HEAD/BRAI 2 MEDICAL COLIN N W/O SERV CONTRAST FOUNDATIO MATERIAL N COMPREHEN [address] METABOLIC PANEL COLLECTIO [address] BLOOD VENIPUNCT URE URNLS DIP [address] STICK/TAB LET REAGENT AUTO MICROSCOP Y BLOOD [address] COMPLETE AUTO&AUTO DIFRNTL WBC RADIOLOGI 03039 [facility] [place] WESTERFIE C EXAM 2 RADIOLOGY LD IV A CHEST 2 VIEWS FRONTAL&L ATERAL SBSQ [address] CARE/DAY NEUROLOGY 35 MINUTES SBSQ [address] CARE/DAY NEUROLOGY 35 MINUTES SBSQ [address] CARE/DAY NEUROLOGY 35 MINUTES INTRO 41692 [facility] [place] KOSTELIC LONG GI 2 RADIOLOGY CALVIN TUBE W/MULT FLUORO & IMAGES RS&I RADEX 13736 [facility] [place] DIAZ JAM ABDOMEN 1 2 RADIOLOGY ANTEROPOS TERIOR VIEW INTRODUCT 49419 [facility] [place] KOSTELIC ION LONG 2 RADIOLOGY CALVIN GI TUBE SEPARATE PROCEDURE RADEX 91489 [facility] [place] [facility] ABDOMEN 1 2 RADIOLOGY RADIOLOGY ANTEROPOS TERIOR VIEW SBSQ [address] CARE/DAY NEUROLOGY 35 MINUTES SBSQ [address] CARE/DAY NEUROLOGY 35 MINUTES RADEX 88675 [facility] [place] REDDY BAR ABDOMEN 1 2 RADIOLOGY ANTEROPOS TERIOR VIEW SBSQ [address] CARE/DAY NEUROLOGY 35 MINUTES RADIOLOGI 56064 [facility] [place] [facility] C 2 RADIOLOGY RADIOLOGY EXAMINATI ON CHEST SINGLE VIEW FRONTAL SBSQ [address] CARE/DAY NEUROLOGY 35 MINUTES LOCALIZE 61914 [facility] CEREBRAL 2 [place] SEIZURE NEUROLOGY CABLE/RAD IO EEG/VIDEO LOCALIZE 73031 [facility] CEREBRAL 2 [place] SEIZURE NEUROLOGY CABLE/RAD IO EEG/VIDEO INITIAL 15557 [facility] INPATIENT 2 [facility] CONSULT NEUROLOGY NEW/ESTAB PT 110 MIN FLUOR 85515 [facility] [place] [facility] NEEDLE/CA 2 RADIOLOGY RADIOLOGY TH SPINE/PAR ASPINAL DX/THER ADDON MRI BRAIN 66235 [facility] [place] [facility] [place] BRAIN 2 RADIOLOGY RADIOLOGY STEM W/O W/CONTRAS T MATERIAL SPINAL 10945 [facility] [place] [facility] [place] PUNCTURE 2 RADIOLOGY RADIOLOGY LUMBAR DIAGNOSTI C AMB A0427 IVORY IVORY SERVICE 2 [facility] U[facility]AN U[facility]AN EMERGENCY COGOVT COGOVT TRANSPORT LEVEL 1 CRITICAL 22717 [facility] 2 INGA JOVAN ILL/INJUR EMERGENCY ED PHYSI PATIENT INIT 30-[address] [place] [address] [facility] [place] [facility] [place] HEAD/BRAI 2 RADIOLOGY RADIOLOGY N W/O CONTRAST MATERIAL RADIOLOGI 45582 [facility] [place] [facility] C 2 RADIOLOGY RADIOLOGY EXAMINATI ON CHEST SINGLE VIEW FRONTAL GROUND A0425 IVORY IVORY MILEAGE 2 [facility] [facility] PER URBAN URBAN STATUTE COGOVT COGOVT MILE SKIN TEST 82406 [facility] [place] [facility] [place] [address] [facility] [place] SCALF, HEAD/BRAI 9 RADIOLOGY PRAVIN E N W/O CONTRAST MATERIAL SKIN TEST 59530 [facility] [place] [facility] SIS BANK ACCT [place] RADIOLOGI 74841 [facility] [place] EDMUNDO, C 8 RADIOLOGY JENNIE R EXAMINATI ON CHEST SINGLE VIEW FRONTAL ECG 23188 [facility] ROUTINE 8 [place] [facility]IN[facility] J W/LEAST PSC 12 LDS I&R ONLY Encounters Encounter Start End Date Code Location Performer Type Date [facility] SAUL Edward 7 7 [facility] T EMERGENCY 68316 BRANDY CAMARILLO DEPT 7 7 [facility] HIGH SEVERITY& THREAT FUNCJ EMERGENCY 36667 [facility] 7 [facility] MODERATE SEVERITY OFFICE 15822 [facility] SUZI CONSULTAT 7 7 NURSE PRIETO QUINN NEW/ESTAB NER GR PATIENT 60 MIN HOSPITAL SAUL - 7 7 [facility] 00426 [facility]UL 7 [facility] MODERATE SEVERITY EMERGENCY 64202 BRANDY CAMARILLO 7 7 [facility] T VISIT HIGH/URGE NT SEVERITY HOSPITAL SAUL Edward 7 7 [facility] 35762 [facility] P[facility] 7 7 MEDICAL T VISIT SERV 25 FOUNDATIO MINUTES N [facility] - 7 7 [facility] INPATIENT [facility] EMERGENCY 14885 BRANDY GAMEZ DEPT 6 6 PHYSICIAN U JEREMY VISIT S, PLLC HIGH SEVERITY& THREAT FUNCJ EMERGENCY 14878 BRANDY APONTE 6 6 PHYSICIAN FOR DEPARTMEN S, PLL[facility] T VISIT HIGH/URGE NT SEVERITY EMERGENCY 72242 BRANDY AVILA 6 6 PHYSICIAN AMOL DEPARTMEN S[facility] PLL[facility] T VISIT HIGH/URGE NT SEVERITY EMERGENCY 58103 BRANDY AVILA 6 6 [facility] T VISIT MODERATE SEVERITY EMERGENCY [id number] BRANDY AVILA 6 6 [facility] T VISIT MODERATE SEVERITY EMERGENCY 87708 BRANDY GAMEZ DEPT 6 6 PHYSICIAN U JEREMY VISIT S, PLLC HIGH SEVERITY& THREAT FUNCJ EMERGENCY 97937 BRANDY RENUSC DEPT 6 6 PHYSICIAN BHAVIK [facility]IT [facility], [facility] SEVER[facility]& THREAT FUN OFFICE [id number] [facility] 6 6 PHYSICIAN NERIS Saunders NEW 20 S GROUP MINUTES EMERGENCY 29813 [facility] RENUSC DEPT 6 6 PHYSICIAN BHAVIK VISIT S, [facility] HIGH SEVERITY& THREAT FUN EMERGENCY 91295 BRANDY RENUSC DEPT 6 6 PHYSICIAN BHAVIK VISIT S, [facility] HIGH SEVERITY& THREAT FUN EMERGENCY 50650 BRANDY BANNER MD [facility] DEPT 5 5 PHYSICIAN AMOL VISIT S, [facility] HIGH SEVERITY& THREAT [facility] UNIVERSIT - 5 5 Y INPATIENT HOSPITAL EMERGENCY 54506 UNIVERSIT 4 4 Y [facility] HOSPITAL T VISIT HIGH/URGE NT SEVERITY HOSPITAL [facility] - [facility] 49715 CHIDI VARGHESE 3 3 MEDICAL SET [facility] SERV T VISIT FOUNDATIO HIGH/URGE NT SEVERITY HOSPITAL [facility] 3 3 [facility] 06271 UNIVERSIT DEPT 3 3 Y VISIT HOSPITAL HIGH SEVERITY& THREAT [facility] [place] [id number] 2 HOSPITAL OUTPATIEN T EMERGENCY 39790 [facility] 2 2 [place] [facility] EMERGENCY T VISIT PHYS HIGH/URGE NT SEVERITY OFFICE 50558 [facility] [place] [facility] 9 9 [facility] [place] T VISIT [facility]AL CO H D 10 BANK ACCT MINUTES OFFICE [id number] [facility] [place] [facility] 9 9 [facility] [place] [facility] V[facility] CO H D 15 BANK ACCT MINUTES
--- OUTSIDE RECORDS SUMMARY | 2017-07-02 07:54 | External Medical Summary Rpt | CCD ---
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 7 MEDICAL CARE/DAY SERV 25 FOUNDATIO MINUTES N AMB A0431 AIR AIR SERVICE 7 METHODS METHODS CONVNTION [facility] AIR SRVC TRANSPORT [address] CRITICAL 75340 [facility] 7 PHYSICIAN ILL/INJUR S, [facility] ED PATIENT INIT 30-74 MIN AMB A0427 ISI [facility] SERVICE 7 AMBULANCE AMBULANCE ALS SERVICE SERVICE EMERGENCY TRANSPORT LEVEL 1 REPAIR [id number] [facility] FACE SKIN 7 HEALTHCAR HEALTHCAR EXTERNAL E E APPROACH [facility] DRUG 61318 COMBINED COMBINED SCREEN 6 PHYSICIAN PHYSICIAN QUANTITAT S LA S LA LAUREN PHENYTOIN TOTAL COLLECTIO 83577 COMBINED COMBINED N VENOUS 6 PHYSICIAN PHYSICIAN BLOOD S LA S LA VENIPUNCT URE SBSQ 13929 [facility] 6 FACILITY CARE/DAY E/M STABLE 10 MIN DRUG 32008 COMBINED COMBINED SCREEN 6 PHYSICIAN PHYSICIAN QUANTITAT S LA S LA LAUREN PHENYTOIN TOTAL COLLECTIO 84077 COMBINED COMBINED N VENOUS 6 PHYSICIAN PHYSICIAN BLOOD S LA S LA VENIPUNCT URE COLLECTIO 01858 COMBINED COMBINED N VENOUS 6 PHYSICIAN PHYSICIAN BLOOD S LA S LA VENIPUNCT URE DRUG 89256 COMBINED COMBINED SCREEN 6 PHYSICIAN PHYSICIAN QUANTITAT S LA S LA LAUREN PHENYTOIN TOTAL DRUG 93059 COMBINED COMBINED SCREEN 6 PHYSICIAN PHYSICIAN QUANTITAT S LA S LA LAUREN PHENYTOIN TOTAL COLLECTIO 12641 COMBINED COMBINED N VENOUS 6 PHYSICIAN PHYSICIAN BLOOD S LA S LA VENIPUNCT URE COLLECTIO 81510 COMBINED COMBINED N VENOUS 6 PHYSICIAN PHYSICIAN BLOOD S LA S LA VENIPUNCT URE DRUG 38523 COMBINED COMBINED SCREEN 6 PHYSICIAN PHYSICIAN QUANTITAT S LA S LA LAUREN PHENYTOIN TOTAL HEPATIC 72975 COMBINED COMBINED FUNCTION 6 PHYSICIAN PHYSICIAN PANEL S LA S LA COLLECTIO 49925 COMBINED COMBINED N VENOUS 6 PHYSICIAN PHYSICIAN BLOOD S LA S LA VENIPUNCT URE DRUG 54783 COMBINED COMBINED SCREEN 6 PHYSICIAN PHYSICIAN QUANT S LA S LA DIPROPYLA CETIC ACID FREE RADIOLOGI 91546 [facility] ALL C EXAM 6 MEDICAL CHEST 2 IMAGING VIEWS ASS FRONTAL&[place] [address] [facility] ALL HEAD/BRAI 6 MEDICAL N W/O IMAGING CONTRAST ASS MATERIAL INITIAL 52922 [facility] OBSERVATI 6 VALLEY ON INTERNAL CARE/DAY MED 30 MINUTES SBSQ 89819 [facility] 6 SUSHILA SUSHILA FACILITY CARE/DAY E/M STABLE 10 MIN PARING/CU 15913 BRAUDIS BRAUDIS TTING 6 BENIGN HYPERKERA TOTIC LESION >4 TRIMMING 70863 BRAUDIS BRAUDIS NONDYSTRO 6 PHIC NAILS ANY NUMBER DEBRIDEME 76017 BRAUDIS BRAUDIS NT NAIL 6 ANY METHOD 1-5 HEPATIC 41253 COMBINED COMBINED FUNCTION 6 PHYSICIAN PHYSICIAN PANEL S LA S LA COLLECTIO 62877 COMBINED COMBINED N VENOUS 6 PHYSICIAN PHYSICIAN BLOOD S LA S LA VENIPUNCT URE IIV4 VACC 18501 [facility] 6 DISTRICT DISTRICT VIRUS 0.5 HLTH DEPT HLTH DEPT ML DOS ADRIANNA ADRIANNA FOR IM USE NONEMERG A0120 FEDERATED FEDERATED TRNSPRT: 6 MINI-BUS TRANSPORT TRANSPORT MTN ATION SER ATION SER AREA/OTH SYS SBSQ 27986 [facility] 6 SUSHILA SUSHILA FACILITY CARE/DAY E/M STABLE 10 MIN DRUG 80403 COMBINED COMBINED SCREEN 6 PHYSICIAN PHYSICIAN QUANTITAT S LA S LA LAUREN PHENYTOIN TOTAL COLLECTIO 11874 COMBINED COMBINED N VENOUS 6 PHYSICIAN PHYSICIAN BLOOD S LA S LA VENIPUNCT URE DRUG 17242 COMBINED COMBINED SCREEN 6 PHYSICIAN PHYSICIAN QUANTITAT S LA S LA LAUREN PHENYTOIN TOTAL GROUND A0425 [facility] MILEAGE 6 AMBULANCE AMBULANCE PER SERVICE SERVICE STATUTE MILE AMBULANCE A0429 [facility] SERVICE 6 AMBULANCE AMBULANCE BLS SERVICE SERVICE EMERGENCY TRANSPORT SIMPLE 93834 [facility] REPAIR 6 PHYSICIAN AMOL F/E/E/N/L S, PLLC /M 2.5CM/< [place] [address] JASMINE LING HEAD/BRAI 6 MEDICAL N W/O IMAGING CONTRAST ASS MATERIAL AMBULANCE A0429 [facility] SERVICE 6 AMBULANCE AMBULANCE BLS SERVICE SERVICE EMERGENCY TRANSPORT GROUND A0425 [facility] MILEAGE 6 AMBULANCE AMBULANCE PER SERVICE SERVICE STATUTE MILE COLLECTIO 13716 COMBINED MARCHINO N VENOUS 6 PHYSICIAN TING BLOOD S LA VENIPUNCT URE DRUG 79595 COMBINED MARCHINO SCREEN 6 PHYSICIAN TING QUANTITAT S LA LAUREN PHENYTOIN TOTAL NONEMERG A0120 FEDERATED FEDERATED TRNSPRT: 6 MINI-BUS TRANSPORT TRANSPORT MTN ATION SER ATION SER AREA/OTH SYS SBSQ 09750 [facility] N[facility] 6 SUSHILA SUSHILA FACILITY CARE/DAY E/M STABLE 10 MIN GROUND A0425 [facility] MILEAGE 6 AMBULANCE CLEVE PER SERVICE STATUTE MILE AMBULANCE A0429 [facility] SERVICE 6 AMBULANCE CLEVE BLS SERVICE EMERGENCY TRANSPORT AMB A0427 [facility] SERVICE 6 AMBULANCE AMBULANCE ALS SERVICE SERVICE EMERGENCY TRANSPORT LEVEL 1 COLLECTIO 97210 COMBINED SHASHY N VENOUS 6 PHYSICIAN PEDRO BLOOD S LA VENIPUNCT URE DRUG 86518 COMBINED SHASHY SCREEN 6 PHYSICIAN PEDRO QUANTITAT S LA LAUREN PHENYTOIN TOTAL COLLECTIO 55052 COMBINED RICE JAM N VENOUS 6 PHYSICIAN BLOOD S LA VENIPUNCT URE AMBULANCE A0429 [facility] SERVICE 6 AMBULANCE MAR BLS SERVICE EMERGENCY TRANSPORT GROUND A0425 [facility] MILEAGE 6 AMBULANCE MAR PER SERVICE STATUTE MILE HEPATIC 29264 COMBINED RICE JAM FUNCTION 6 PHYSICIAN PANEL S LA SBSQ 12227 [facility] NUR[facility] 6 SUSHILA SUSHILA FACILITY CARE/DAY E/M STABLE 10 MIN HEPATIC 38662 COMBINED COMBINED FUNCTION 6 PHYSICIAN PHYSICIAN PANEL S LA S LA COLLECTIO 21817 COMBINED COMBINED N VENOUS 6 PHYSICIAN PHYSICIAN BLOOD S LA S LA VENIPUNCT URE SBSQ 69647 [facility] N[facility] 6 SUSHILA SUSHILA FACILITY CARE/DAY E/M STABLE 10 MIN NONEMERG A0120 FEDERATED FEDERATED TRNSPRT: 6 MINI-BUS TRANSPORT TRANSPORT MTN ATION SER ATION SER ARE[place] [address] [facility] 6 [facility] PATHOLOGY MED CTR GROSS&AMOL ROSCOPIC EXAM ANESTHESI 96475 ANESTHESI HASSOUN A 6 A GROUP BHAVIK INTRAORAL PRACTICE WITH BIOPSY NOS 25 82800 COMBINED COMBINED HYDROXY 6 PHYSICIAN PHYSICIAN INCLUDES S LA S LA FRACTIONS IF PERFORMED BLOOD 89442 COMBINED COMBINED COUNT 6 PHYSICIAN PHYSICIAN COMPLETE S LA S LA AUTO&AUTO DIFRNTL WBC PROTHROMB 71273 COMBINED COMBINED IN TIME 6 PHYSICIAN PHYSICIAN S LA S LA COLLECTIO 34150 COMBINED COMBINED N VENOUS 6 PHYSICIAN PHYSICIAN BLOOD S LA S LA VENIPUNCT URE LIPID 80160 COMBINED COMBINED PANEL 6 PHYSICIAN PHYSICIAN S LA S LA COMPREHEN 24225 COMBINED COMBINED SIVE 6 PHYSICIAN PHYSICIAN METABOLIC S LA S LA PANEL HEPATIC 17971 COMBINED COMBINED FUNCTION 6 PHYSICIAN PHYSICIAN PANEL S LA S LA COLLECTIO 12427 COMBINED COMBINED N VENOUS 6 PHYSICIAN PHYSICIAN BLOOD S LA S LA VENIPUNCT URE DRUG 11463 COMBINED COMBINED SCREEN 6 PHYSICIAN PHYSICIAN QUANTITAT S LA S LA LAUREN PHENYTOIN TOTAL SBSQ 81182 [facility] NUR[facility] 6 SUSHILA SUSHILA FACILITY CARE/DAY E/M STABLE 10 MIN GROUND A0425 [facility] MILEAGE 6 AMBULANCE AMBULANCE PER SERVICE SERVICE STATUTE MILE AMB A0427 [facility] SERVICE 6 AMBULANCE AMBULANCE ALS SERVICE SERVICE EMERGENCY TRANSPORT LEVEL 1 SBSQ 66764 [facility] N[facility] 6 SUSHILA SUSHILA FACILITY CARE/DAY E/M STABLE 10 MIN NONEMERG A0120 FEDERATED FEDERATED TRNSPRT: 6 MINI-BUS TRANSPORT TRANSPORT MTN ATION SER ATION SER AREA/OTH SYS COLLECTIO 20416 COMBINED COMBINED N VENOUS 6 PHYSICIAN PHYSICIAN BLOOD S LA S LA VENIPUNCT URE HEPATIC 32780 COMBINED COMBINED FUNCTION 6 [place]YS[place] [address] JASMINE LING HEAD/BRAI 6 MEDICAL N W/O IMAGING CONTRAST ASS MATERIAL GROUND A[address] [place] [address] 6 AMBULANCE AMBULANCE PER SERVICE SERVICE STATUTE MILE AMBULANCE A0429 [facility] 6 AMBULANCE AMBULANCE BLS SERVICE SERVICE EMERGENCY TRANSPORT RADEX 37407 JASMINE LING WRIST 6 MEDICAL COMPLETE IMAGING MINIMUM 3 ASS VIEWS AMB A0427 [facility] SERVICE 6 AMBULANCE AMBULANCE ALS SERVICE SERVICE EMERGENCY TRANSPORT LEVEL 1 SBSQ 59901 [facility] NURSING 6 SUSHILA SUSHILA FACILITY CARE/DAY E/M STABLE 10 MIN COLLECTIO 64713 COMBINED COMBINED N VENOUS 6 PHYSICIAN PHYSICIAN BLOOD S LA S LA VENIPUNCT URE HEPATIC 92994 COMBINED COMBINED FUNCTION 6 [place]YSIC[place] [address] JASMINE LYNN HEAD/BRAI 6 MEDICAL BILL N W/O IMAGING CONTRAST ASS MATERIAL RADIOLOGI 96714 [facility] 6 MEDICAL BILL EXAMINATI IMAGING ON CHEST ASS SINGLE VIEW FRONTAL GROUND A04[address] [place] [address] 6 AMBULANCE AMBULANCE PER SERVICE SERVICE STATUTE MILE AMB A0427 [facility] SERVICE 6 AMBULANCE AMBULANCE ALS SERVICE SERVICE EMERGENCY TRANSPORT LEVEL 1 BLOOD 58180 COMBINED COMBINED COUNT 6 PHYSICIAN PHYSICIAN COMPLETE S LA S LA AUTO&AUTO DIFRNTL WBC 25 23205 COMBINED COMBINED HYDROXY 6 PHYSICIAN PHYSICIAN INCLUDES S LA S LA FRACTIONS IF PERFORMED COLLECTIO 53939 COMBINED COMBINED N VENOUS 6 PHYSICIAN PHYSICIAN BLOOD S LA S LA VENIPUNCT URE COMPREHEN 42450 COMBINED COMBINED SIVE 6 PHYSICIAN PHYSICIAN METABOLIC S LA S LA PANEL SBSQ 75014 [facility] 6 SUSHILA SUSHILA FACILITY CARE/DAY E/M STABLE 10 MIN COLLECTIO 16178 COMBINED COMBINED N VENOUS 6 PHYSICIAN PHYSICIAN BLOOD S LA S LA VENIPUNCT URE HEPATIC 03468 COMBINED COMBINED FUNCTION 6 PHYSICIAN PHYSICIAN PANEL S LA S LA SBSQ 71363 [facility] N[facility] 6 SUSHILA SUSHILA FACILITY CARE/DAY E/M STABLE 10 MIN COLLECTIO 61769 COMBINED COMBINED N VENOUS 6 PHYSICIAN PHYSICIAN BLOOD S LA S LA VENIPUNCT URE HEPATIC 33150 COMBINED COMBINED FUNCTION 6 PHYSICIAN PHYSICIAN PANEL S LA S LA E/M 54342 [facility] O[facility]LL ANNUAL 6 SUSHILA SUSHILA NURSING FACILITY ASSESS STABLE 30 MIN COLLECTIO 61207 COMBINED COMBINED N VENOUS 6 PHYSICIAN PHYSICIAN BLOOD S LA S LA VENIPUNCT URE LIPID 29613 COMBINED COMBINED PANEL 6 PHYSICIAN PHYSICIAN S LA S LA COMPREHEN 96654 COMBINED COMBINED SIVE 6 PHYSICIAN PHYSICIAN METABOLIC S LA S LA PANEL 25 07177 COMBINED COMBINED HYDROXY 6 PHYSICIAN PHYSICIAN INCLUDES S LA S LA FRACTIONS IF PERFORMED BLOOD 21009 COMBINED COMBINED COUNT 6 PHYSICIAN PHYSICIAN COMPLETE S LA S LA AUTO&AUTO DIFRNTL WBC SBSQ 34689 [facility] NURSING 5 SUSHILA SUSHILA FACILITY CARE/DAY E/M STABLE 10 MIN HEPATIC 34971 COMBINED COMBINED FUNCTION 5 PHYSICIAN PHYSICIAN PANEL S LA S LA HEPATIC 31472 COMBINED COMBINED FUNCTION 5 PHYSICIAN PHYSICIAN PANEL S LA S LA SBSQ 24510 [facility] NURSING 5 SUSHILA SUSHILA FACILITY CARE/DAY E/M STABLE 10 MIN GROUND A0425 [facility] 5 AMBULANCE AMBULANCE PER SERVICE SERVICE STATUTE [facility] ECG 27248 [facility] ROUTINE 5 [facility] W/LEAST P 12 LDS I&[place] [address] [place] ALL CERVICAL 5 MEDICAL SPINE W/[place] [address] [place] HEAD/BRAI 5 MEDICAL BILL N W/O IMAGING CONTRAST ASS MATERIAL AMB A0427 [facility] SERVICE 5 AMBULANCE AMBULANCE ALS SERVICE SERVICE EMERGENCY TRANSPORT LEVEL 1 INITIAL 13868 [facility]LL NURSING 5 [facility] FACILITY CARE/DAY 25 MINUTES SBSQ 28409 [facility] 5 [place] CARE/DAY PHYSICIAN 25 S ASSIST MINUTES SBSQ 00148 [facility] 5 [place] CARE/DAY PHYSICIAN 25 S ASSIST MINUTES SBSQ 28188 [facility] 5 MEDICAL PRE CARE/DAY SERV 25 FOUNDATIO MINUTES N SBSQ 49243 [facility] 5 [place] CARE/DAY PHYSICIAN 25 S ASSIST MINUTES SBSQ 95130 [place] [address] MEDICAL PRE CARE/DAY SERV 25 FOUNDATIO MINUTES N SBSQ 17748 [place] [address] MEDICAL PRE CARE/DAY SERV 25 FOUNDATIO MINUTES N SBSQ 39695 [place] [address] MEDICAL PAD CARE/DAY SERV 25 FOUNDATIO MINUTES N SBSQ 41985 [place] [address] MEDICAL CARE/DAY SERV 25 FOUNDATIO MINUTES N SBSQ 41553 [place] [address] MEDICAL CARE/DAY SERV 25 FOUNDATIO MINUTES N SBSQ 99780 [place] [address] MEDICAL PAD CARE/DAY SERV [address] [place] [address] [place] K[facility]N YODER HEAD/BRAI 5 MEDICAL N W/O SERV CONTRAST FOUNDATIO MATERIAL N FRENOPLAS 74015 [place] KEENAN BEBA TY SURG 5 MEDICAL REVJ SERV FRENUM EG FOUNDATIO N W/Z-PLAST Y SBSQ 09359 [place] [address] MEDICAL PAD CARE/DAY SERV 25 FOUNDATIO MINUTES N SBSQ 10485 [facility] [place] 5 MEDICAL CARE/DAY SERV 25 FOUNDATIO MINUTES N RADIOLOGI 47922 [place] KASSIDY C EXAM 5 MEDICAL AYA MAR CHEST 2 SERV VIEWS FOUNDATIO FRONTAL&L N ATERAL RADEX 30572 [place] BLANCA BHAVIK ABDOMEN 1 5 MEDICAL SERV ANTEROPOS FOUNDATIO TERIOR N VIEW RADEX 54535 [place] ROLA NERIS ABDOMEN 1 5 MEDICAL SERV ANTEROPOS FOUNDATIO TERIOR N VIEW RADIOLOGI 42365 [facility] D[facility] C 5 MEDICAL AMOL EXAMINATI SERV ON CHEST FOUNDATIO SINGLE N VIEW FRONTAL RADIOLOGI 48742 [place] DANIA C 5 MEDICAL AMOL EXAMINATI SERV ON CHEST FOUNDATIO SINGLE N VIEW FRONTAL RADIOLOGI 68864 [place] PRATEEK TAYLOR C 5 MEDICAL EXAMINATI SERV ON CHEST FOUNDATIO SINGLE N VIEW FRONTAL RADIOLOGI 87806 [place] PRATEEK C 5 MEDICAL EXAMINATI SERV ON CHEST FOUNDATIO SINGLE N VIEW FRONTAL ECG 51654 [place] [facility] ROUTINE 5 MEDICAL GRIZZLYMAN ECG SERV W/LEAST FOUNDATIO 12 LDS N I&R ONLY ECG 11028 [place] MIKHAIL CHI ROUTINE 5 MEDICAL ECG SERV W/LEAST FOUNDATIO 12 LDS N I&R ONLY SBSQ 21234 [place] [address] MEDICAL BERTA CARE/DAY SERV 35 FOUNDATIO MINUTES N RADIOLOGI 43213 [place] PRATEEK C 5 MEDICAL EXAMINATI SERV ON CHEST FOUNDATIO SINGLE N VIEW FRONTAL RADIOLOGI 71830 [place] PR[facility] C 5 MEDICAL EXAMINATI SERV ON CHEST FOUNDATIO SINGLE N VIEW FRONTAL CRITICAL 20369 [place] [facility] 5 MEDICAL ILL/INJUR SERV ED FOUNDATIO PATIENT N INIT 30-74 MIN CRITICAL 32163 [place] [facility] 5 MEDICAL BERTA ILL/INJUR SERV ED FOUNDATIO PATIENT N INIT 30-74 MIN RADIOLOGI 59329 [place] PRATEEK C 5 MEDICAL EXAMINATI SERV ON CHEST FOUNDATIO SINGLE N VIEW FRONTAL RADIOLOGI 89871 [place] DANIA C 5 MEDICAL AMOL EXAMINATI SERV ON CHEST FOUNDATIO SINGLE N VIEW FRONTAL CRITICAL 43942 [place] [facility] 5 MEDICAL BERTA ILL/INJUR SERV ED FOUNDATIO PATIENT N INIT 30-74 MIN RADIOLOGI 25120 [place] KASSIDY C 5 MEDICAL AYA MAR EXAMINATI SERV ON CHEST FOUNDATIO SINGLE N VIEW FRONTAL SBSQ 73759 [facility] 5 MEDICAL ZANE CARE/DAY SERV 35 FOUNDATIO MINUTES N SBSQ 29508 [facility] 5 MEDICAL ZANE CARE/DAY SERV 35 FOUNDATIO MINUTES N RADIOLOGI 11429 [place] JIN SUSHILA C 5 MEDICAL EXAMINATI SERV ON CHEST FOUNDATIO SINGLE N VIEW FRONTAL SBSQ 95284 [facility] 5 MEDICAL ZANE CARE/DAY SERV 35 FOUNDATIO MINUTES N RADIOLOGI 11406 [place] JIN SUSHILA C 5 MEDICAL EXAMINATI SERV ON CHEST FOUNDATIO SINGLE N VIEW FRONTAL RADIOLOGI 09854 [place] BLANCA EVERETTS C 5 MEDICAL EXAMINATI SERV ON CHEST FOUNDATIO SINGLE N VIEW FRONTAL CRITICAL 87396 [place] [facility] 5 MEDICAL JUDIE ILL/INJUR SERV ED FOUNDATIO PATIENT N ADDL 30 MIN CYTP 41889 [facility] SL[facility]V 5 Y OF KEENAN CELL [facility] NT INTERPJ XCPT C/V CRITICAL 06114 [facility] 5 MEDICAL JUDIE ILL/INJUR SERV ED FOUNDATIO PATIENT N INIT 30-74 MIN THORACENT 28318 [facility] ESIS 5 MEDICAL ZANE NEEDLE/CA SERV TH PLEURA FOUNDATIO N W/IMAGING DRAINAGE [id number] [facility] RIGHT 5 Y Y PLEURAL [facility] CAVITY PERQ RESPIRATO [id number] [facility] 5 Y Y VENTILATI [facility] ON > 96 CONSECUTI VE HOURS INSERT [id number] [facility] ENDOTRACH 5 Y Y L AIRWAY [facility] TRACHEA KARIME/ART OPENING CRITICAL 15352 [facility] 5 MEDICAL ILL/INJUR SERV ED FOUNDATIO PATIENT N INIT 30-74 MIN RADIOLOGI 54930 [facility] C 5 MEDICAL EXAMINATI SERV ON CHEST FOUNDATIO SINGLE N VIEW FRONTAL SBSQ 91020 [facility] 5 INGA CARE/DAY PHYSICIAN 35 SERVI MINUTES ECG 42179 [facility] ROUTINE 5 MEDICAL NAN ECG SERV W/LEAST FOUNDATIO 12 LDS N I&R ONLY SBSQ 01852 [place] [address] INGA CARE/DAY PHYSICIAN 35 SERVI MINUTES SBSQ 52754 [facility] 5 MEDICAL CARE/DAY SERV 25 FOUNDATIO MINUTES N SBSQ 85274 [facility] 5 MEDICAL CARE/DAY SERV 25 FOUNDATIO MINUTES N SBSQ 06140 [place] [address] INGA CARE/DAY PHYSICIAN 35 SERVI MINUTES RADIOLOGI 35001 [facility] 5 MEDICAL EXAMINATI SERV ON CHEST FOUNDATIO SINGLE N VIEW FRONTAL SBSQ 84490 [facility] 5 MEDICAL CARE/DAY SERV 35 FOUNDATIO MINUTES N SBSQ 61437 [place] [address] INGA CARE/DAY PHYSICIAN 25 SERVI MINUTES RADIOLOGI 17290 [facility] 5 MEDICAL AYA MAR EXAMINATI SERV ON CHEST FOUNDATIO SINGLE N VIEW FRONTAL SBSQ 73331 [place] [address] INGA ANNEL CARE/DAY PHYSICIAN 35 SERVI MINUTES SBSQ 55025 [place] [address] INGA ANNEL CARE/DAY PHYSICIAN 25 [place] [address] [facility] ABDOMINAL 5 MEDICAL REAL SERV TIME FOUNDATIO W/IMAGE N DOCUMENTA TION RADIOLOGI 48185 [facility] 5 MEDICAL AYA MAR EXAMINATI SERV ON CHEST FOUNDATIO SINGLE N VIEW FRONTAL SBSQ 07361 [facility] 5 MEDICAL JUDIE CARE/DAY SERV 35 FOUNDATIO MINUTES N SBSQ 10593 [facility] 5 MEDICAL CARE/DAY SERV 35 FOUNDATIO MINUTES N RADEX 07780 [place] [facility] ABDOMEN 1 5 MEDICAL SERV ANTEROPOS FOUNDATIO TERIOR N VIEW RADIOLOGI 97149 [facility] 5 MEDICAL AMOL EXAMINATI SERV ON CHEST FOUNDATIO SINGLE N VIEW FRONTAL SBSQ 45989 [facility] 5 MEDICAL CARE/DAY SERV 35 FOUNDATIO MINUTES N SBSQ 12346 [facility] 5 MEDICAL CARE/DAY SERV 35 FOUNDATIO MINUTES N CYTP 36467 [facility] 5 Y OF JEREMY CELL [facility] NT INTERPJ XCPT C/[place] L[place] [address] [facility] ALEJANDRO MARTINE[facility] SURG 5 Y OF JEREMY PATHOLOGY [place] [facility] GROSS&AMOL ROSCOPIC EXAM RADIOLOGI 23700 [facility] 5 MEDICAL AMOL EXAMINATI SERV ON CHEST FOUNDATIO SINGLE N VIEW FRONTAL DRAINAGE [id number] [facility] LEFT 5 Y [facility] CAVITY PERCUTANE OUS INSERTION [id number] [facility] INFUSION 5 Y Y [facility] SUPERIOR VENA CAVA PERQ SBSQ 11158 [facility] 5 MEDICAL GARCIA JEAN-PAUL CARE/DAY SERV 25 FOUNDATIO MINUTES N RADIOLOGI 36355 [place] PRATEEK C 5 MEDICAL EXAMINATI SERV ON CHEST FOUNDATIO SINGLE N VIEW FRONTAL ECHO 92465 [facility]ERNANDE[facility] TTHRC R-T 5 MEDICAL 2D SERV W/WOM-MOD FOUNDATIO E COMPL N SPEC&COLR D SBSQ 08296 [place] [address] INGA ANNEL CARE/DAY PHYSICIAN 35 SERVI MINUTES INITIAL 55530 [facility] 5 MEDICAL CONSULT SERV NEW/ESTAB FOUNDATIO PT 80 N MIN SBSQ 24879 [place] [address] INGA CARE/DAY PHYSICIAN [address] THORAX 94783 [place] MIRZA TING W/O 5 MEDICAL CONTRAST SERV MATERIAL FOUNDATIO N SBSQ 64769 [place] [address] INGA CARE/DAY PHYSICIAN 35 SERVI MINUTES SBSQ 35032 [place] [address] INGA CARE/DAY PHYSICIAN 35 SERVI MINUTES ECG 08025 [facility] 5 MEDICAL NAN ECG SERV W/LEAST FOUNDATIO 12 LDS N I&R ONLY RADIOLOGI 33870 [place] [facility] 5 MEDICAL KEELY EXAMINATI SERV LALO ON CHEST FOUNDATIO SINGLE N VIEW FRONTAL RADEX ABD 62613 [place] [facility] 5 MEDICAL SCO AQT ABD SERV W/S/E/D FOUNDATIO VIEWS 1 N VIEW CH SBSQ 01299 [place] [address] INGA CARE/DAY PHYSICIAN [address] SBSQ [address] [facility] 5 INGA CARE/DAY PHYSICIAN 35 SERVI MINUTES SBSQ 41606 [place] [address] INGA CARE/DAY PHYSICIAN 35 SERVI MINUTES RADIOLOGI 98815 [place] [facility] 5 MEDICAL EXAMINATI SERV ON CHEST FOUNDATIO SINGLE N VIEW FRONTAL RADEX 72432 [place] DISANTIS ABDOMEN 1 5 MEDICAL ZANE SERV ANTEROPOS FOUNDATIO TERIOR N VIEW RADEX 14169 [place] DISANT[place] ESOPHAGUS 5 MEDICAL ZANE SERV FOUNDATIO N SBSQ 79093 [facility] 5 INGA CARE/DAY PHYSICIAN 35 SERVI MINUTES SBSQ 50086 [place] [address] INGA ANNEL CARE/DAY PHYSICIAN 25 SERVI MINUTES SBSQ 00132 [facility] 5 INGA ANNEL CARE/DAY PHYSICIAN 35 SERVI MINUTES RADIOLOGI 99246 [place] JIN SUSHILA C 5 MEDICAL EXAMINATI SERV ON CHEST FOUNDATIO SINGLE N VIEW FRONTAL SBSQ 66713 [place] [address] INGA ANNEL CARE/DAY PHYSICIAN 25 SERVI MINUTES SBSQ 67342 [place] [address] INGA ANNEL CARE/DAY PHYSICIAN 25 SERVI MINUTES SBSQ 55736 [place] [address] INGA ANNEL CARE/DAY PHYSICIAN 25 SERVI MINUTES SWALLOWIN 96441 [place] DISANTIS G FUNCJ 5 MEDICAL ZANE W/CINERAD SERV IOGRAPY/V FOUNDATIO IDRADIOG N SBSQ 88186 [place] [address] INGA ANNEL CARE/DAY PHYSICIAN 35 SERVI MINUTES RADIOLOGI 15509 [place] MIRZA TING C 5 MEDICAL EXAMINATI SERV ON CHEST FOUNDATIO SINGLE N VIEW FRONTAL SBSQ 47437 [place] [address] INGA ANNEL CARE/DAY PHYSICIAN 35 SERVI MINUTES RADIOLOGI 13944 [place] MIR[place] T[place] C EXAM 5 MEDICAL CHEST 2 SERV VIEWS FOUNDATIO FRONTAL&L N ATERAL SBSQ 35141 [place] [address] INGA INGA CARE/DAY PHYSICIAN PHYSICIAN 25 SERVI SERVI MINUTES SBSQ 54641 [place] [address] INGA CARE/DAY PHYSICIAN 35 SERVI MINUTES SBSQ 26862 [place] [address] INGA CARE/DAY PHYSICIAN 25 SERVI MINUTES SBSQ 04183 [place] [address] INGA CARE/DAY PHYSICIAN 25 SERVI MINUTES SBSQ 62818 [place] [address] INGA CARE/DAY PHYSICIAN 25 SERVI MINUTES SBSQ 52650 [facility] 5 INGA CARE/DAY PHYSICIAN 25 SERVI MIN[address]ES SBSQ 71731 [facility] 5 INGA CARE/DAY PHYSICIAN 25 SERVI MINUTES SBSQ 08190 [facility] 5 INGA CARE/DAY PHYSICIAN 25 SERVI MINUTES SBSQ 42633 [facility] 5 INGA CARE/DAY PHYSICIAN 25 SERVI MINUTES SBSQ 55578 [facility] 5 INGA CARE/DAY PHYSICIAN 25 SERVI MINUTES INITIAL 53687 [place] STRUP TING INPATIENT 5 MEDICAL CONSULT SERV NEW/ESTAB FOUNDATIO PT 40 N MIN CRITICAL 17935 [place] [address] INGA ILL/INJUR PHYSICIAN ED SERVI PATIENT INIT 30-74 MIN DUP-SCAN 48766 CHIDI CANELA NERIS ARTL VENICE 5 MEDICAL ABDL/PEL/ SERV SCROT&/RP FOUNDATIO R ORGN N COM INITIAL 57968 [facility] 5 INGA CARE/DAY PHYSICIAN 70 SERVI MINUTES RADEX 55445 [place] SK[place] FOREARM 2 5 MEDICAL GENO VIEWS SERV FOUNDATIO N RADEX 68247 [place] [facility] WRIST 5 MEDICAL GENO COMPLETE SERV MINIMUM 3 FOUNDATIO VIEWS N RADEX 58638 [place] [facility] [place] ELBOW 5 MEDICAL GENO COMPLETE SERV MINIMUM 3 FOUNDATIO VIEWS N RADEX 25108 [place] [facility] HAND 5 MEDICAL GENO MINIMUM 3 SERV VIEWS FOUNDATIO N ECG 36[address] [place] MIKHAIL CHI ROUTINE 5 MEDICAL ECG SERV W/LEAST FOUNDATIO 12 LDS N I&R ONLY RADIOLOGI 36043 [place] SKYE PANTOJA C 5 MEDICAL GENO EXAMINATI SERV ON CHEST FOUNDATIO SINGLE N VIEW FRONTAL BASIC 98554 [facility] METABOLIC 4 Y Y [facility] CALCIUM TOTAL BLOOD 08641 [facility] 4 Y [facility] AUTO&AUTO DIFRNTL WBC AMB A0427 VIORY IVORY SERVICE 3 [facility]AY[facility] FAYETTKirk [facility] COGOVT TRANSPORT LEVEL 1 GROUND A0425 IVORY IVORY MILEAGE 3 [place] PER [facility] [place] [address] [place] KE[place] HEAD/BRAI 3 MEDICAL TING N W/[place] [address] [place] KELLY CERVICAL 3 MEDICAL TING SPINE W/O SERV CONTRAST FOUNDATIO MATERIAL PROF SVCS 40986 [facility] ALLG [facility] IMMNTX X E CENTER W/[place] [address] [place] HARMONY CERVICAL 3 MEDICAL ADRIANNA SPINE W/O SERV CONTRAST FOUNDATIO MATERIAL N ECG 68410 [place] PORTER MANJU ROUTINE 3 MEDICAL ECG SERV W/LEAST FOUNDATIO 12 LDS N I&[place] [address] [place] RASLAU HEAD/BRAI 3 MEDICAL FLA N W/O SERV CONTRAST FOUNDATIO MATERIAL RADIOLOGI 55792 [place] NICKELS C 3 MEDICAL ZANE EXAMINATI [...] [facility] COG[facility] COGOVT TRANSPORT ECG 35373 [place] HUDSON ROUTINE 3 MEDICAL NAN ECG SERV W/LEAST FOUNDATIO 12 LDS I&R ONLY RADIOLOGI 64074 [place] ROLA CORDON C EXAM 3 MEDICAL CHEST 2 SERV VIEWS FOUNDATIO FRONTAL&L N ATERAL GROUND A0425 IVORY IVORY MILEAGE 3 FAYETTE FAYETTE PER URBAN URBAN STATUTE COGOVT COGOVT MILE AMB A0427 IVORY IVORY SERVICE 3 FAYETTE FAYETTE ALS [facility] [place] [address] [place] [address] [place] ROLA JAM CERVICAL 2 MEDICAL SPINE W/[place] [address] [place] PEG HEAD/BRAI 2 MEDICAL COLIN N W/O SERV CONTRAST FOUNDATIO MATERIAL N COMPREHEN [address] METABOLIC PANEL COLLECTIO [address] BLOOD VENIPUNCT URE URNLS DIP [address] STICK/TAB LET REAGENT AUTO MICROSCOP Y BLOOD [address] COMPLETE AUTO&AUTO DIFRNTL WBC RADIOLOGI 75581 [facility] [place] WESTERFIE C EXAM 2 RADIOLOGY LD IV A CHEST 2 VIEWS FRONTAL&L ATERAL SBSQ [address] CARE/DAY NEUROLOGY 35 MINUTES SBSQ [address] CARE/DAY NEUROLOGY 35 MINUTES SBSQ [address] CARE/DAY NEUROLOGY 35 MINUTES INTRO 82214 [facility] [place] KOSTELIC LONG GI 2 RADIOLOGY CALVIN TUBE W/MULT FLUORO & IMAGES RS&I RADEX 37336 [facility] [place] DIAZ JAM ABDOMEN 1 2 RADIOLOGY ANTEROPOS TERIOR VIEW INTRODUCT 82073 [facility] [place] KOSTELIC ION LONG 2 RADIOLOGY CALVIN GI TUBE SEPARATE PROCEDURE RADEX 99066 [facility] [place] [facility] ABDOMEN 1 2 RADIOLOGY RADIOLOGY ANTEROPOS TERIOR VIEW SBSQ [address] CARE/DAY NEUROLOGY 35 MINUTES SBSQ [address] CARE/DAY NEUROLOGY 35 MINUTES RADEX 49257 [facility] [place] REDDY BAR ABDOMEN 1 2 RADIOLOGY ANTEROPOS TERIOR VIEW SBSQ [address] CARE/DAY NEUROLOGY 35 MINUTES RADIOLOGI 20731 [facility] [place] [facility] C 2 RADIOLOGY RADIOLOGY EXAMINATI ON CHEST SINGLE VIEW FRONTAL SBSQ [address] CARE/DAY NEUROLOGY 35 MINUTES LOCALIZE 57105 [facility] CEREBRAL 2 CAMUY CHILO SEIZURE NEUROLOGY CABLE/RAD IO EEG/VIDEO LOCALIZE 74500 [facility] CEREBRAL 2 CAMUY CHILO SEIZURE NEUROLOGY CABLE/RAD IO EEG/VIDEO INITIAL 35763 [facility] INPATIENT 2 [facility] CONSULT NEUROLOGY NEW/ESTAB PT 110 MIN FLUOR 73085 [facility] [place] [facility] NEEDLE/CA 2 RADIOLOGY RADIOLOGY TH SPINE/PAR ASPINAL DX/THER ADDON MRI BRAIN 86397 [facility] [place] [facility] BRAIN 2 RADIOLOGY RADIOLOGY STEM W/O W/CONTRAS T MATERIAL SPINAL 82781 [facility] [place] [facility] PUNCTURE 2 RADIOLOGY RADIOLOGY LUMBAR DIAGNOSTI C AMB A0427 IVORY IVORY SERVICE 2 FAYETTE FAYETTE ALS [facility] EMERGENCY COGOVT COGOVT TRANSPORT LEVEL 1 CRITICAL 65226 [facility] 2 INGA JOVAN ILL/INJUR EMERGENCY ED PHYSI PATIENT INIT 30-[address] [place] [address] [facility] [place] [facility] [place] HEAD/BRAI 2 RADIOLOGY RADIOLOGY N W/O CONTRAST MATERIAL RADIOLOGI 14875 [facility] [place] [facility] [place] C 2 RADIOLOGY RADIOLOGY EXAMINATI ON CHEST SINGLE VIEW FRONTAL GROUND A0425 IVORY IVORY MILEAGE 2 FAYETTE FAYETTE PER URBAN URBAN STATUTE COGOVT COGOVT MILE SKIN TEST 69567 [facility] [place] [facility] [place] [address] [facility] [place] SCALF, HEAD/BRAI 9 RADIOLOGY PRAVIN E N W/O CONTRAST MATERIAL SKIN TEST 60348 [facility] [place] [facility] D SIS BANK ACCT INTRADERM AL RADIOLOGI 45936 [facility] [place] EDMUNDO, C 8 RADIOLOGY JENNIE R EXAMINATI ON CHEST SINGLE VIEW FRONTAL ECG 69102 CAMILA HOLT ROUTINE 8 [place] ECG CLINIC J W/LEAST PSC 12 LDS I&R ONLY Encounters Encounter Start End Date Code Location Performer Type Date [facility] SAUL Edward 7 7 [facility] T EMERGENCY 90795 BRANDY CAMARILLO DEPT 7 7 [facility] HIGH SEVERITY& THREAT FUNCJ EMERGENCY 82680 [facility]ERATE SEVERITY OFFICE 06656 [facility] 7 7 NURSE PRIETO QUINN NEW/ESTAB NER GR PATIENT 60 MIN HOSPITAL SAUL - 7 7 [facility] 61717 [facility] MODERATE SEVERITY EMERGENCY 53577 BRANDY CAMARILLO 7 7 [facility] T VISIT HIGH/URGE NT SEVERITY HOSPITAL SAUL Edward 7 7 [facility] 90708 [facility] 7 7 MEDICAL T VISIT SERV 25 FOUNDATIO MINUTES N [facility] - 7 7 [facility] INPATIENT [facility] EMERGENCY 35724 BRANDY GAMEZ DEPT 6 6 PHYSICIAN U JEREMY VISIT [facility] HIGH SEVERITY& THREAT FUNCJ EMERGENCY 43951 BRANDY APONTE 6 6 PHYSICIAN FOR DEPARTMEN S, PLLC T VISIT HIGH/URGE NT SEVERITY EMERGENCY 59967 BRANDY AVILA 6 6 PHYSICIAN AMOL DEPARTMEN S, PLLC T VISIT HIGH/URGE NT SEVERITY EMERGENCY 75705 BRANDY AVILA 6 6 PHYSICIAN AMOL DEPARTMEN [facility] PLL[facility] T VISIT MODERATE SEVERITY EMERGENCY 40832 BRANDY AVILA 6 6 PHYSICIAN AMOL DEPARTMEN [facility], PLL[facility] T VISIT MODERATE SEVERITY EMERGENCY 17515 BRANDY GAMEZ DEPT 6 6 PHYSICIAN U JEREMY VISIT S, PLLC HIGH SEVERITY& THREAT FUNCJ EMERGENCY 50804 BRANDY RENUSC DEPT 6 6 PHYSICIAN BHAVIK [facility] H[facility] SE[facility]& THREAT FUN OFFICE 36563 [facility] OUTPATIEN 6 6 PHYSICIAN NERIS Saunders NEW 20 S GROUP MINUTES EMERGENCY 33914 [facility] RENUSC DEPT 6 6 PHYSICIAN BHAVIK VISIT S, [facility] HIGH SEVERITY& THREAT FUN EMERGENCY 83022 BRANDY RENUSC DEPT 6 6 PHYSICIAN BHAVIK VISIT S, [facility] HIGH SEVERITY& THREAT FUN EMERGENCY 99686 BRANDY [facility] DEPT 5 5 PHYSICIAN AMOL VISIT S, [facility] HIGH SEVERITY& THREAT [facility] UNIVERSIT - 5 5 Y INPATIENT HOSPITAL EMERGENCY 17524 UNIVERSIT 4 4 Y [facility] T VISIT HIGH/URGE NT SEVERITY [facility] 00020 CHIDI VARGHESE 3 3 MEDICAL SET [facility] SERV T VISIT FOUNDATIO HIGH/URGE NT SEVERITY [facility] 26472 UNIVERSIT DEPT 3 3 Y VISIT HOSPITAL HIGH SEVERITY& THREAT [facility] [place] [address] 2 HOSPITAL OUTPATIEN T EMERGENCY 72760 [facility] 2 2 [place] [facility] EMERGENCY T VISIT PHYS HIGH/URGE NT SEVERITY OFFICE 06489 [facility] [place] OUTPATIEN 9 9 [facility] T VISIT CENTRAL CO H D 10 BANK ACCT MINUTES OFFICE 03678 [facility] [place] OUTPATIEN 9 9 [facility] T VISIT CENTRAL CO H D 15 BANK ACCT MINUTES
--- OUTSIDE RECORDS SUMMARY | 2017-07-02 07:56 | External Medical Summary Rpt | CCD ---
Author Author , KATHY Organization KATHY Address Unknown Phone [email or web address] Immunization Name Date Rout CVX Reac Dose Comm Prov Is Faci e tion ent ider Refu lity Give sed n Tdap 03-2 115 999 Hist H134 No H134 , 0-20 oric Adso 09 al rbed Info rmat ion - Sour ce Unsp ecif ied
--- OUTSIDE RECORDS SUMMARY | 2017-07-02 07:56 | External Medical Summary Rpt | CCD ---
Author Author , KATHY Organization KATHY Address Unknown Phone [email or web address] Immunization Name Date Rout CVX Reac Dose Comm Prov Is Faci e tion ent ider Refu lity Give sed n Tdap 03-2 115 999 Hist H134 No H134 , 0-20 oric Adso 09 al rbed Info rmat ion - Sour ce Unsp ecif ied
== END 2017-06-25 17:51 | disposition home or self-care (01) ==
LOC: ER 15:56
PROVIDERS: Emergency Medicine
DX: R56.9 Unspecified convulsions (principal); F17.210 Nicotine dependence, cigarettes, uncomplicated; E55.9 Vitamin D deficiency, unspecified; I10 Essential (primary) hypertension; E78.5 Hyperlipidemia, unspecified; Z79.82 Long term (current) use of aspirin; Z79.899 Other long term (current) drug therapy